=== PATIENT | female | born 1935 | race African-American/Black ===

== ENCOUNTER 2021-04-01 17:55 | Emergency (ER) | payer MEDICARE, SELFPAY ==
[2021-04-01] VITALS (11 sets, daily range): BP systolic 116–150; BP diastolic 69–82; PULSE 62–78; RESP 15–32; TEMP 36.6; O2SAT 79–97
--- NOTE | ~2021-04-01 | XR_ITS ---
XR chest ET placement 04/01/2021 19:48 Indication: Endotracheal tube placement Procedure: AP portable chest Comparison: 04/01/2021 Findings: Cardiomegaly. Unchanged patchy diffuse bilateral airspace disease. Interval placement of en dotracheal tube, tip in the right mainstem bronchus. Recommend retraction approximately 6 cm. Impression: 1: Endotracheal tube tip in the right mainstem bronchus. Recommend retraction approximately 6 cm. Oth erwise, no significant change. Reviewed, dictated and finalized at location A. Impression: 1: Endotracheal tube tip in the right mainstem bronchus. Recommend retraction a pproximately 6 cm. Otherwise, no significant change.
--- NOTE | ~2021-04-01 | XR_ITS ---
XR chest ET placement 04/01/2021 20:00 Indication: Endotracheal tube repositioned Procedure: AP portable chest Comparison: 04/01/2021 Findings: Interval retraction of the endotracheal tube, tip 3.2 cm above the elmer. Unchanged patchy bilateral airspace disease. No significant effusion or pneumothorax. Impression: 1: Persistent patchy diffuse bilateral airspace disease, compatible with pneumonia. Edema and ARDS le ss favored. 2: Endotracheal tube tip 3.2 cm above the elmer. Reviewed, dictated and finalized at location A. Impression: 1: Persistent patchy diffuse bilateral airspace disease, compatible with pneumo yamila. Edema and ARDS less favored. 2: Endotracheal tube tip 3.2 cm above the elmer.
--- NOTE | ~2021-04-01 | XR_ITS ---
XR chest 1V portable 04/01/2021 18:37 Indication: Shortness of breath with weakness Procedure: AP portable chest Comparison: No prior studies for comparison. Findings: Extensive patchy bilateral airspace disease, compatible with pneumonia. Small pleural effus ions. No pneumothorax. No acute osseous abnormality. Impression: 1: Extensive patchy bilateral airspace disease, most likely pneumonia. Edema less favored. 2: Cardiomegaly. 3: Small pleural effusions. Reviewed, dictated and finalized at location A. Impression: 1: Extensive patchy bilateral airspace disease, most likely pneumonia. Edema le ss favored. 2: Cardiomegaly. 3: Small pleural effusions.
--- NOTE | ~2021-04-01 | CT_ITS ---
EXAMINATION: CT brain wo con DATE: 04/01/2021 18:17 INDICATION: Stroke. Patient unresponsive. TECHNIQUE: Computed tomography (CT) of the head was performed without intravenous contrast. The dose- length product was 681.00 mGy-cm. Automated exposure control and iterative reconstruction technique w ere employed. COMPARISON: None FINDINGS: No acute intracranial hemorrhage, infarction, mass or mass effect. Generalized atrophy. The re are scattered mild periventricular and subcortical white matter changes, most likely related to sm all vessel ischemic disease (microangiopathy). No ventriculomegaly or midline shift. Basilar cisterns are patent. Paranasal sinuses and mastoids are pneumatized. 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 There is craniotomy defect at th e left temporal bone. IMPRESSION: 1. No acute intracranial abnormality. As per stroke protocol, I called these results to emergency room, discussed with Dr. Jacob wren MD at 04/01/2021 18:27 CDT. Reviewed, dictated and finalized at location A. IMPRESSION: 1. No acute intracranial abnormality. As per stroke protocol, I called these results to emergency room, discussed wit h Dr. Jacob Hanson MD at 04/01/2021 18:27 CDT.
--- NOTE | 2021-04-01 18:07 | ECG_ITS ---
Measurements Intervals [place] Rate: 72 P: 38 MI: 129 QRS: 46 QRSD: 86 T: -8 QT: 417 QTc: 457 Interpretive Statements SINUS RHYTHM BORDERLINE ST-T WAVE ABNORMALITY- LATERAL LEADS BASELINE ARTIFACT- I, II, III, AVR, AVL, AVF, V1-V6 BORDERLINE ECG Electronically Signed On 04-02-2021 7:47:25 CDT by Ha Christiansen D.O.
[2021-04-01 18:13] LABS: Basophils Absolute Auto 0.01 K/mm3 (0.00-0.10); Basophils Percent Auto 0.1 % (0.0-1.0); Hematocrit 29.3 % (35.0-42.0); Hemoglobin 9.4 g/dL (11.7-13.8); Immature Granulocyte Absolute 0.12 K/mm3 (0.00-0.00); Lymphocytes Absolute Auto 0.46 K/mm3 (1.10-4.50); Lymphocytes Percent Auto 3.9 % (18.0-42.0); Mean Corpuscular HGB Conc 32.1 g/dL (32.0-36.0); Mean Corpuscular Hemoglobin 29.5 pg (27.0-31.0); Mean Corpuscular Volume 91.8 fL (78.0-102.0); Mean Platelet Volume 10.3 fl (9.2-11.8); Monocytes Absolute Auto 0.76 K/mm3 (0.10-0.90); Monocytes Percent Auto 6.4 % (2.0-11.0); Neutrophils Absolute Auto 10.5 K/mm3 (1.7-7.2); Neutrophils Percent Auto 88.6 % (50.0-70.0); Platelet Count Result 200 K/mm3 (150-420); Red Blood Count 3.19 M/mm3 (4.20-5.40); Red Cell Distribution Width 15.3 % (11.6-14.4); White Blood Count 11.9 K/mm3 (4.8-10.8)
[2021-04-01 18:21] LABS: INR 1.1; Partial Thromboplastin Time 38.4 SEC (23.90-30.70); Prothrombin Time 11.8 Seconds (9.50-12.10)
--- NOTE | 2021-04-01 18:33 | PC.NURSE ---
Call paged to [facility] and [facility] in [place], denied due to no bed capapcity.
[2021-04-01 18:34] LABS: Ethanol < 3 mg/dL (0-6)
[2021-04-01 18:38] LABS: Lactic Acid Reflex 6.5 mmol/L (0.4-2.0)
[2021-04-01 18:39] LABS: Alanine Aminotransferase 49 U/L (14-59); Albumin Level 3.3 g/dL (3.4-5.0); Alkaline Phosphatase 112 U/L (46-116); Anion Gap 19 mmol/L (8-16); Aspartate Amino Transferase 62 U/L (15-37); Bilirubin,Total 0.8 mg/dL (0.00-1.00); Blood Urea Nitrogen 63 mg/dL (7-18); Calcium 8.2 mg/dL (8.5-10.1); Carbon Dioxide 16 mmol/L (21-32); Chloride 104 mmol/L (98-108); Estimated Glomerular Filt Rate 16; Glucose 222 mg/dL (70-99); Osmolality Calculated 313 mOsm/kg (285-295); Potassium 5.2 mmol/L (3.5-5.1); Sodium 139 mmol/L (136-145); Total Protein 6.7 g/dL (6.4-8.2)
[2021-04-01 18:40] LABS: Troponin I 149.6 ng/L (0.00-60.4)
--- NOTE | 2021-04-01 18:47 | PC.NURSE ---
Call placed to [facility] for transfer to [facility] ERP on phone at this time c Dr Flores.
[2021-04-01 18:55] LABS: Base Excess ABG -12.5 mmol/L (0-2); HCO3 ABG 14.6 mmol/L (23-29); Oxygen Content ABG 10.8 %vol (16.0-22.0); Oxygen Saturation ABG 75.1 % (95-97); Oxyhemoglobin 74.6 % (94-100); PCO2 ABG 38.2 mmHg (35-45); PO2 ABG 51.8 mmHg (75-85); Total Hemoglobin 10.3 g/dL (12.0-18.0)
[2021-04-01 18:57] LABS: Device NON-REBREATHER MASK; Modified Allen's Test Pass; Site Drawn LEFT RADIAL
[2021-04-01 18:59] LABS: Add Urine Microscopic? YES; Appearance Urine Clear (Clear); Bilirubin Urine Negative (Negative); Blood Urine 2+ (Negative); Color Urine Yellow (Yellow); Glucose Urine UA Negative (Negative); Ketones Urine Negative (Negative); Leukocyte Esterase Ur Negative (Negative); Nitrate Urine Negative (Negative); Protein Urine 3+ (Negative); Specific Grav Ur >= 1.030 (1.010-1.020); Urobilinogen Urine 0.2 mg/dL (0.2-1.0); pH Urine 5.5 (5.0-8.0)
[2021-04-01 19:04] LABS: Bacteria Urine Trace /hpf; Squamous Epithelial Cell Urine Few /hpf (Few); WBC Urine 0-3 /hpf (0-3)
[2021-04-01 19:05] LABS: Amphetamine Screen Urine Negative (Negative); Barbiturate Screen Urine Negative (Negative); Benzodiazepines Screen Urine Negative (Negative); Cannabinoid Screen Urine Negative (Negative); Cocaine Screen Urine Negative (Negative); Methadone Screen Urine Negative (Negative); Opiate Screen Urine Negative (Negative); Phencyclidine Screen Urine Negative (Negative)
--- NOTE | 2021-04-01 19:20 | PC.NURSE ---
Pt prepped for intubation, team here orders recieved.
[2021-04-01] MEDS: MIDAZOLAM HCL (*CRX) 5 MG/ML VIAL 10 MG (19:28)
--- NOTE | 2021-04-01 19:45 | PC.NURSE ---
Meds given per RSI for pt intubation....Versed 5 MG IV 2 1923 Vecuronium 6 mg IVP @ 192 Versed 5 mg IVP given @ 1928 ETT tube 7.5 inserted @1934 c good chest rise and good bilat BS noted.
--- NOTE | 2021-04-01 19:45 | PC.NURSE ---
ERP spoke to Dr Flores at [facility], he cancelled the stat stroke due to recent xray reports. Pt will be put on a transfer wait list to one of [facility]'s hospitals when a bed is found.
[2021-04-01] MEDS: SODIUM CHLORIDE 0.9% IV 1,000 ML 150 ML IV CONT (19:54)
[2021-04-01] MEDS: methylPREDNISolone SOD SUCC 125 MG VIAL IV PUSH (19:55)
[2021-04-01] MEDS: ALBUTEROL SULFATE NEB 2.5 MG/3 ML INH INHALATION (20:10)
[2021-04-01 20:18] LABS: SARS-CoV-2 RNA PCR Positive (Negative)
[2021-04-01] MEDS: SODIUM BICARBONATE 8.4% 50 MEQ/50 ML SYRINGE IV PUSH (20:23)
--- NOTE | 2021-04-01 20:44 | PC.NURSE ---
[facility] system called for pt transfer and for manager imaging. No beds available for transfer at this time. Call placed back to [facility] for possible bed available in an ICU, Stated no covid beds available for ICU transfer/admit.
--- NOTE | 2021-04-01 21:00 | PC.NURSE ---
Call [facility], spoke viji parisi. will call back c ICU warehouse administrative assistant.
[2021-04-01 21:21] LABS: Reflex Lactic Acid Yes or No Add Lactic
--- NOTE | 2021-04-01 21:37 | ED.NEUROSD ---
HPI - Neuro Symptoms/Deficit General Chief Complaint: Suspected CVA Stated Complaint: AMB Time Seen by Provider: 04/01/21 17:57 Source: family, EMS and RN notes reviewed Mode of arrival: EMS Limitations: no limitations History of Present Illness HPI Narrative: Pt collapsed at home and was unresponsive x 15 mins. Onset (ago): minute(s) (40) Timing confirmed by: family member and other (EMS) History of same: No Severity: severe Relieving factors: none Exacerbating factors: none Context: sudden onset Associated symptoms: shortness of breath Treatments Prior to Arrival: none Related Data Home Medications Medication Instructions Recorded Confirmed Unable to Obtain Home Medications 04/01/21 04/01/21 Allergies Allergy/AdvReac Type Severity Reaction Status Date / Time No Known Allergies Allergy Verified 04/01/21 20:37 Review of Systems Review of Systems: All systems reviewed & are unremarkable except as noted in HPI and below Respiratory: Respiratory: Reports dyspnea and Reports wheezing PMFSH Past Medical History Medical History COVID-19 Non-STEMI (non-ST elevated myocardial infarction) Pneumonia due to 2019 novel coronavirus Exam Const: General: ill appearing and other (pt was not communicative, but was non-focal) Nutritional Appearance: thin HENMT: Head: normal to inspection, No palpable skull fracture present, normocephalic and atraumatic Ears: TM's normal bilaterally General nose exam: Normal external nose present and Normal nares present Face and sinus: normal facial exam Mouth: Yes Normal oral and palatal mucosa present, Yes lip normal, Yes tongue normal, Yes moist mucous membranes and Yes other (edentulous) Throat: posterior oropharynx normal Eyes: Eyelids: eyelids normal Conjunctivae: conjunctivae normal Sclera: sclerae normal Cornea: corneas normal Pupils: Equal, round and reactive pupils present EOM: EOMs intact bilaterally Neck: Neck: normal visual inspection and no lymphadenopathy Chest: Chest palpation & inspection: normal inspection of the chest Resp: Effort & Inspection: labored, respiratory distress and uses accessory muscles Auscultation: rhonchi and wheezes Percussion: percussion normal Cardio: Jugular venous distension: no JVD Palpation: normal PMI Rate: regular rate Rhythm: regular rhythm Heart sounds: S1 normal heart sound present and S2 normal heart sound present Peripheral pulses: Peripheral pulses 2+ throughout GI: Inspection: normal to inspection Percussion: Yes normal to percussion Auscultation: normal bowel sounds : General: Yes no CVA tenderness Back/Spine/Pelvis: Back: no CVA tenderness Thoracic/Lumbar Spine: thoracic and lumbar spine normal to inspection Skin: General skin exam: normal color, no rashes or lesions noted and turgor normal Neuro: General: moves all extremities and other (pt was non-communicative but responsive with no lateralizing signs.) Cranial nerves: Yes CN's II-XII intact bilaterally, Yes Equal, round and reactive pupils present, Yes Normal accommodation reflex present and Yes Bilaterally intact EOM present Speech: aphasia Motor exam (neuro): Other motor observations present (strength 2/5) Extrem: General: capillary refill normal, no joint enlargement, no pedal edema and no calf tenderness Psych: Appearance: disheveled Thought process: Other thought process findings present (non-communicative.) Thought content: Yes other (non-communicative pt.) Course Course Emergency Course: Pt was seriously ill in the ED, she was stabilized and intubated prior to transfer to [facility] ICU. Reevaluation(s) Date: 04/01/21 Time: 18:56 Vital Signs Vital signs: Vital Signs Pulse Rate 72 04/01/21 18:00 Respiratory Rate 16 04/01/21 18:00 Blood Pressure 116/82 04/01/21 18:00 Pulse Oximetry 80 L 04/01/21 18:00 Temperature 36.6 C 04/01/21 20:33 Pulse Rate 62
--- NOTE | 2021-04-01 21:50 | PC.NURSE ---
Call back from traveling clerk at [facility] Dr Boucher accepts for transfer. Call back from hospitalist at [facility] who accepts for transfer. Awaiting call back c bed assignment.
[2021-04-01] MEDS: DEXAMETHASONE SOD PHOS INJ 4 MG/ML VIAL 6 MG IV PUSH (22:01)
[2021-04-01 22:16] LABS: Base Excess ABG -8.2 mmol/L (0-2); HCO3 ABG 17.5 mmol/L (23-29); Oxygen Content ABG 12.1 %vol (16.0-22.0); Oxygen Saturation ABG 84.6 % (95-97); Oxyhemoglobin 84.2 % (94-100); PCO2 ABG 36.7 mmHg (35-45); PO2 ABG 57.4 mmHg (75-85); Total Hemoglobin 10.2 g/dL (12.0-18.0)
[2021-04-01 22:17] LABS: Device VENTILATOR; Modified Allen's Test Pass; Site Drawn RIGHT RADIAL
[2021-04-01 22:18] LABS: Arterial Blood Gas Vent Mode ASSIST CONTROL
[2021-04-01 22:19] LABS: Arterial Blood Gas PEEP 8 cmH2O; Arterial Blood Gas Tidal Volume 300 ml; Arterial Blood Gas Ventilator rate 15 /MIN
[2021-04-01] MEDS: ALBUTEROL SULFATE NEB 2.5 MG/3 ML INH (22:21)
[2021-04-01] MEDS: MIDAZOLAM HCL (*CRX) 2 MG/2 ML VIAL IV PUSH (22:31)
--- NOTE | 2021-04-29 07:46 | PC.NURSE ---
unable to contact pt family. personal belongings of pants, shirt, tshirt disposed of today. noted pt has .
== END 2021-04-01 22:45 | disposition short-term general hospital (02) ==
PROVIDERS: Emergency Provider Emergency Medicine; PCP Physician Assistant
DX: U07.1 COVID-19 (principal); J12.82 Pneumonia due to coronavirus disease 2019; I21.4 Non-ST elevation (NSTEMI) myocardial infarction
CPT/HCPCS: 31500; 36415; 36600; 70450; 71045; 80053; 80307; 81001; 82805; 82948; 83605; 84484; 85025; 85610; 85730; 93005; 94640; 96361; 96365; 96367; 96375; 96376; 99285; 99291; C9803; J0456; J0696; J1100; J2250; J2930; J7030; U0003; U0005

== ENCOUNTER 2021-04-01 23:39 | Inpatient (IN) | payer MEDICARE, SELFPAY ==
--- NOTE | ~2021-04-01 | XR_ITS ---
EXAMINATION: XR chest 1V portable EXAM DATE: 04/03/2021 08:42 INDICATION: COVID pneumonia, acute respiratory failure. TECHNIQUE: Portable AP frontal chest x-ray was obtained. Comparison is made to prior examination from 04/02/2021. FINDINGS: Endotracheal tube tip is 5 centimeters above the elmer. There is a nasogastric tube seen with tip collimated off the study, but below the left hemidiaphragm. There is a right-sided PICC line in position. Diffuse right greater than left airspace disease consistent with COVID pneumonia. There are no sizab le pleural effusions. Lung interstitial markings identified to the periphery, no pneumothorax suspe cted. The cardiomediastinal silhouette is prominent but magnified on this AP technique. The bones and soft tissues are unremarkable. There is no significant interval change compared to prior exam. IMPRESSION: 1. Line and tube(s) in position. 2. Stable airspace disease and other findings as above. Reviewed, dictated and finalized at location A.
--- NOTE | ~2021-04-01 | XR_ITS ---
EXAMINATION: XR chest ET placement EXAM DATE: 04/02/2021 00:48 INDICATION: After intubation to confirm ET placement TECHNIQUE: Portable AP frontal chest x-ray was obtained. There is no prior study for comparison. FINDINGS: Endotracheal tube tip is 4 centimeters above the elmer. There is a nasogastric tube seen with tip collimated off the study, but below the left hemidiaphragm. There is diffuse bilateral airspace disease likely acute, probably pneumonia or edema. Underlying chr onic airspace disease not excludable. There are no sizable pleural effusions. There is no pneumoth orax suspected. The cardiomediastinal silhouette is prominent but magnified on this AP technique. There are bony degenerative changes. There is aortic arteriosclerosis. IMPRESSION: 1. Tubes in position. 2. Diffuse acute airspace disease, pneumonia and/or edema most likely. Reviewed, dictated and finalized at location A.
--- NOTE | ~2021-04-01 | XR_ITS ---
XR chest PICC line 04/02/2021 14:55 Indication: PICC line insertion Procedure: AP portable chest Comparison: Comparison to multiple prior studies sequentially, with oldest reviewed study dated 03/05. Findings: Interval placement of right subclavian central line, tip in the CC. Endotracheal tube tip 4 .2 cm above the elmer. NG tube in the stomach. Unchanged diffuse bilateral airspace disease, compati ble with pneumonia. No pneumothorax identified. Impression: 1: Stable diffuse bilateral airspace disease, most likely pneumonia. Differential diagnosis includes edema and ARDS. Reviewed, dictated and finalized at location A. Impression: 1: Stable diffuse bilateral airspace disease, most likely pneumonia. Differenti al diagnosis includes edema and ARDS.
--- NOTE | ~2021-04-01 | XR_ITS ---
EXAMINATION: XR chest 1V portable DATE: 04/09/2021 08:36 INDICATION: Respiratory failure TECHNIQUE: frontal view of the chest was obtained. COMPARISON: Chest radiograph dated 04/07/2021 FINDINGS: Endotracheal tube tip 5.5 cm above the elmer. Nasogastric tube extends below the left hemidiaphragm with distal tip collimated off the study. Right upper extremity peripherally inserted central venous catheter (PICC) tip at the mid superior vena cava. Decreasing patchy consolidation throughout both lungs consistent with worsening pneumonia. Small bila teral pleural effusions. No pneumothorax. Enlarged cardiac silhouette is partially obscured. IMPRESSION: 1. Interval increase in extensive patchy bilateral airspace opacities consistent with worsening pneum onia, pulmonary edema, ARDS or some combination thereof. 2. Small bilateral pleural effusions 3. Cardiomegaly.. Reviewed, dictated and finalized at location A. IMPRESSION: 1. Interval increase in extensive patchy bilateral airspace opacities consisten t with worsening pneumonia, pulmonary edema, ARDS or some combination thereof. 2. Small bilateral pleural effusions 3. Cardiomegaly..
--- NOTE | ~2021-04-01 | XR_ITS ---
EXAMINATION: XR abdomen NG/feed tube insert EXAM DATE: 04/02/2021 00:48 INDICATION: NG placement . TECHNIQUE: Frontal projection(s) of the abdomen for interpretation. There is no prior study for abena tee. FINDINGS: Feeding tube tip and side-port project over left upper quadrant, adequate. Nonobstructive upper abdominal bowel gas. Diffuse bilateral airspace disease, cardiomegaly. Thoracolumbar spondylosi s. IMPRESSION: Feeding tube in position. Reviewed, dictated and finalized at location A. IMPRESSION: Feeding tube in position.
--- NOTE | ~2021-04-01 | XR_ITS ---
EXAMINATION: XR chest 1V portable INDICATION: COVID pneumonia, respiratory failure TECHNIQUE: Portable AP chest at 0901 hours COMPARISON: 04/06/2021 FINDINGS: The endotracheal tube ends approximately 5.7 cm above the elmer. The nasogastric tube is f ollowed as far as the stomach. Its tip is beyond the inferior margin of the radiograph. A right upper extremity PICC ends with its tip in the distal superior vena cava. Diffuse opacities persist through out all lung zones with interval improvement in the right upper lung zone and worsening in the left m id and upper lung zones. IMPRESSION: 1. Waxing and waning diffuse lung disease, consistent with pneumonia and/or pulmonary edema and/or ac chenega respiratory distress syndrome (ARDS). Reviewed, dictated and finalized at location B. IMPRESSION: 1. Waxing and waning diffuse lung disease, consistent with pneumonia and/or pul monary edema and/or acute respiratory distress syndrome (ARDS).
--- NOTE | ~2021-04-01 | XR_ITS ---
EXAMINATION: XR chest 1V portable DATE: 04/04/2021 06:03 INDICATION: COVID pneumonia. Acute respiratory failure. TECHNIQUE: frontal view of the chest was obtained. COMPARISON: Chest radiograph dated 04/03/2021 FINDINGS: Endotracheal tube tip 4.3 cm above the elmer. Nasogastric tube extends below the left hemidiaphragm with distal tip collimated off the study. Right upper extremity peripherally inserted central venous catheter (PICC) tip at the caudal superior vena cava. There is been some interval progression in patchy airspace opacities throughout both lungs. No pneumo thorax or definitive pleural effusion. Cardiomegaly. IMPRESSION: 1. Some interval progression in patchy airspace opacities throughout both lungs consistent with pneum onia versus less likely pulmonary edema. 2. Cardiomegaly. Reviewed, dictated and finalized at location A. IMPRESSION: 1. Some interval progression in patchy airspace opacities throughout both lungs consistent with pneumonia versus less likely pulmonary edema. 2. Cardiomegaly.
--- NOTE | ~2021-04-01 | US_ITS ---
EXAMINATION: US renal BI EXAM DATE: 04/02/2021 13:09 INDICATION: Acute kidney injury rule out hydronephrosis. Acute kidney insufficiency. TECHNIQUE: Multiple grayscale and Doppler images of the kidneys were obtained (by a technologist who performed the scan) and subsequently reviewed. There is no prior study for comparison. FINDINGS: There is bilateral renal cortical thinning. Right kidney: There is normal contour and increased echogenicity. It measures 10.8 x 3.2 x 3.5 centi meters. Right renal anechoic lesion with single septation, likely cyst measuring up to 1.5 cm. Ther e is no hydronephrosis. Left kidney: There is normal contour and increased echogenicity. It measures 9.6 x 4.1 x 4.2 centime ters. Exophytic cyst measuring 1.5 cm There is no hydronephrosis. Bladder unremarkable. IMPRESSION: 1. Mild bilateral renal atrophy. 2. Echogenic kidneys, medical renal disease. 3. No hydronephrosis. Reviewed, dictated and finalized at location A.
--- NOTE | ~2021-04-01 | XR_ITS ---
EXAMINATION: XR chest 1V portable INDICATION: COVID pneumonia, acute respiratory failure TECHNIQUE: Portable AP chest at 0921 hours COMPARISON: 04/04/2021 FINDINGS: The endotracheal tube ends approximately 5.4 cm above the elmer. The nasogastric tube is f ollowed as far as the stomach. Its tip is beyond the inferior margin of the radiograph. A right upper extremity PICC ends with its tip in the distal superior vena cava. Patchy opacities persist througho ut all lung zones with slight interval improvement. The cardiomediastinal silhouette is stable. No pl eural effusion or pneumothorax is identified. IMPRESSION: 1. Diffuse lung disease with slight interval improvement, consistent with pneumonia and/or pulmonary edema and/or acute respiratory distress syndrome (ARDS). Reviewed, dictated and finalized at location B. IMPRESSION: 1. Diffuse lung disease with slight interval improvement, consistent with pneum onia and/or pulmonary edema and/or acute respiratory distress syndrome (ARDS).
--- NOTE | ~2021-04-01 | XR_ITS ---
EXAMINATION: XR chest 1V portable INDICATION: COVID pneumonia, acute respiratory failure TECHNIQUE: Portable AP chest at 0859 hours COMPARISON: 04/05/2021 FINDINGS: The endotracheal tube ends approximately 7.0 cm above the elmer. The nasogastric tube is f ollowed as far as the stomach. Its tip is beyond the inferior margin of the radiograph. A right upper extremity PICC ends with its tip in the midsuperior vena cava. Diffuse opacities persist throughout all lung zones with interval worsening. Cardiomegaly is noted. There is no pleural effusion or pneumo thorax. IMPRESSION: 1. Diffuse lung disease with interval worsening, consistent with pneumonia and/or pulmonary edema and /or acute respiratory distress syndrome (ARDS). Reviewed, dictated and finalized at location B. IMPRESSION: 1. Diffuse lung disease with interval worsening, consistent with pneumonia and/ or pulmonary edema and/or acute respiratory distress syndrome (ARDS).
--- NOTE | 2021-04-01 23:20 | ADMGEN ---
This patient, Alisa Dleeon, was admitted to Intensive Care Unit-10. Patient/family oriented to hospital policies and general routines including ID bracelet, bed and alarms, visiting hours, pain management, procedures, bathroom and other care routines, personal items, smoking policy, room service/diet, and visiting hours. Information on how to activate the Rapid Response Team has been discussed. Patient/Family are encouraged to report perceived risks to care and to ask questions if they do not understand what they are told or what they should do.
[2021-04-01 23:30] VITALS: PULSE 71; O2SAT 94
[2021-04-01 23:36] VITALS: BP 148/78; PULSE 70; RESP 28; O2SAT 93
[2021-04-01 23:51] VITALS: BMI 21.2
--- NOTE | 2021-04-01 23:59 | PM.IMHP ---
H&P: HPI History of Present Illness Date/Time: 04/01/21 23:59 Chief Complaint: Shortness of breath Narrative: This is an 85-year-old female with past medical history significant for hypertension, anemia of iron deficiency, dyslipidemia. Patient came as a transfer from [facility] where she arrived by ambulance once there patient crashed with severe respiratory distress and required ventilator support. Most of the history has been obtained from medical record as patient is currently on ventilator support. Patient tested positive for COVID-19 and chest x-ray showed diffuse lung infiltrates. Review of Systems Review of Systems: ROS unobtainable: Yes unobtainable due to medical condition (On ventilator support) [facility] Family History Family History (Updated 04/02/21 @ 02:31 by Nikki Benjamin RN) Other Unknown family medical history Social History Social History Smoking status: Never smoker Alcohol intake: never Substance use: never Spiritual care concerns: No Meds Home Medications and Allergies Home Medications Medication Instructions Recorded Confirmed Type amlodipine 10 mg PO DAILY 04/02/21 04/02/21 History atorvastatin 40 mg PO DAILY 04/02/21 04/02/21 History escitalopram oxalate 20 mg PO DAILY 04/02/21 04/02/21 History ferrous sulfate 325 mg PO DAILY 04/02/21 04/02/21 History furosemide 20 mg PO DAILY 04/02/21 04/02/21 History metoprolol tartrate 25 mg PO BID 04/02/21 04/02/21 History pantoprazole 20 mg PO DAILY 04/02/21 04/02/21 History potassium chloride 20 meq PO DAILY 04/02/21 04/02/21 History Allergies Allergy/AdvReac Type Severity Reaction Status Date / Time No Known Allergies Allergy Verified 04/02/21 01:38 Vital Signs Vital Signs - 24 hr 04/01/21 23:36 Pulse Rate 70 Respiratory Rate 28 H Blood Pressure 148/78 H Pulse Oximetry 93 Exam Narrative: Laying in bed on ventilator support Const: General: comfortable, no acute distress, well developed and other (On ventilator support) Nutritional Appearance: average body habitus Orientation/consciousness: Other orientation findings (Sedated) HENMT: Head: normal to inspection, normocephalic and atraumatic Face and sinus: normal facial exam Mouth: Yes other (ET tube in place) Eyes: General: appearance normal, both eyes and all related structures Alignment and Position: alignment normal Eyelids: eyelids normal Sclera: sclerae normal Pupils: Equal, round and reactive pupils present EOM: EOMs intact bilaterally Neck: Neck: normal visual inspection, full ROM, no lymphadenopathy, supple and no JVD Thyroid: thyroid normal Lymphatic: no lymphadenopathy noted Chest: Chest palpation & inspection: normal inspection of the chest Resp: Effort & Inspection: normal respiratory effort (In sync with ventilator) Auscultation: crackles, rales and diminished lung sounds Cardio: Jugular venous distension: no JVD Rate: regular rate Rhythm: regular rhythm Heart sounds: S1 normal heart sound present and S2 normal heart sound present GI: Inspection: normal to inspection GI Palp: Yes Soft to palpation, No Tenderness to palpation present (GI), No Guarding due to palpation present (GI) and Yes No hepatosplenomegaly present : General: Yes deferred Urinary Catheter: Urinary Catheter: patent and draining Skin: General skin exam: normal color Rashes: no rashes Wounds: no wounds Neuro: General: no focal motor deficits Cognition (Neuro): abnormal cognition (Under sedation) Gait exam (Neuro): Unable to assess gait Extrem: General: normal to inspection, full ROM, no joint enlargement and no pedal edema Assessment and Plan Assessment and plan (1) Acute respiratory failure: Code(s): J96.00 - Acute respiratory failure, unspecified whether with hypoxia or hypercapnia Status: Acute Assessment and Plan: Patient is currently on ventilator support Vent management as per Critical Care Pulmonary toilet Supportiv
[2021-04-02] VITALS (47 sets, daily range): BP systolic 84–180; BP diastolic 51–88; PULSE 59–91; RESP 14–30; TEMP 34.7–37.8; O2SAT 84–100
[2021-04-02 00:45] LABS: Glucose Point of Care 276 mg/dl (65-105)
[2021-04-02 00:46] LABS: Basophils Percent Auto 0.1 % (0.2-1.2); Hemoglobin 9.9 g/dL (12.0-15.0); Immature Granulocyte Absolute 0.06 K/mm3 (0.00-0.031); Immature Granulocyte Percent A 0.6 % (0-0.5); Lymphocytes Absolute Auto 0.36 K/mm3 (0.9-3.2); Lymphocytes Percent Auto 3.6 % (18.3-44.2); Mean Corpuscular Hemoglobin 29.6 pg (26-34); Mean Corpuscular Volume 89.8 fl (80-100); Mean Platelet Volume 10.6 fl (7.4-10.4); Monocytes Absolute Auto 0.3 K/mm3 (0.1-0.6); Monocytes Percent Auto 2.9 % (2.6-8.5); Neutrophils Absolute Auto 9.4 K/mm3 (1.3-6.7); Neutrophils Percent Auto 92.8 % (45.5-73.1); Platelet Count Result 175 k/mm3 (150-375); Red Blood Count 3.34 M/mm3 (4.2-5.4); Red Cell Distribution Width 15.4 % (11.5-14.5); White Blood Count 10.1 K/mm3 (4.5-10.0)
[2021-04-02 00:54] LABS: Alanine Aminotransferase 45 U/L (4-35); Aspartate Amino Transferase 82 U/L (14-36); Creatine Kinase 831 U/L (30-135); Estimated CRCL calculation 13 ml/min; Estimated Glomerular Filt Rate 23; Phosphorus 5.7 mg/dL (2.5-4.5); Potassium 4.8 mmol/L (3.4-5.0)
[2021-04-02 00:55] LABS: Lactic Acid Reflex 1.7 mmol/L (0.7-2.1)
[2021-04-02 01:03] LABS: Carboxyhemoglobin 0.3 % THb (0-2.0); Fractional Inspired Oxygen 90 %; HCO3 ABG 17.6 mEq/l (22.0-26.0); Methemoglobin ABG 0.1 %THb (0-1.5); Oxygen Content ABG 12.9 %vol (16.0-22.0); Oxyhemoglobin 85.4 % THb (90.0-100.0); PCO2 ABG 32.4 mmHg (35.0-45.0); PO2 ABG 55.5 mmHg (80.0-100.0); PO2 FiO2 Ratio Arterial Blood 0.62 %; Reduced Hemoglobin 14.2 %THb (0-5.0); Total Hemoglobin 10.7 g/dL (12.0-18.0); pH ABG 7.354 (7.350-7.450)
[2021-04-02 01:04] LABS: Device VENTILATOR; Modified Allen's Test Pass; Site Drawn RIGHT RADIAL
[2021-04-02 01:05] LABS: Arterial Blood Gas PEEP 8 cmH2O; Arterial Blood Gas Tidal Volume 300 ml; Arterial Blood Gas Vent Mode CMV; Arterial Blood Gas Ventilator rate 15 /MIN
[2021-04-02] MEDS: FENTANYL 2,500MCG/NS250ML(*CRX 2,500 MCG/250 ML BAG IV CONT (01:38)
[2021-04-02] MEDS: MIDAZOLAM 100MG/NS 100ML(*CRX) 100 MG/100 ML BAG IV CONT (01:39)
--- NOTE | 2021-04-02 01:50 | ADMIMU ---
This patient, Alisa Deleon, was admitted to IMU status, and placed in Intensive Care Unit-10 04/01/21 at 2320. Patient/family oriented to hospital policies and general routines including ID bracelet, bed and alarms, visiting hours, pain management, procedures, bathroom and other care routines, personal items, smoking policy, room service/diet, and visiting hours. Information on how to activate the Rapid Response Team has been discussed. Patient/Family are encouraged to report perceived risks to care and to ask questions if they do not understand what they are told or what they should do.
--- NOTE | 2021-04-02 01:51 | PC.NURSE ---
spoke with son and updated per condition. He states his mother was fine until she got this cold . Explained he and his father have been exposed to covid so they need to take precautions and get tested. Son agrees to central line or PICC if needed stating whatever you need to do . Ayde Hampton RN second verifying nurse for telephone consent. Son does not have POA paper for mother but was in the process of setting them up. He is the primary bistro server for his mother and father, as well as his father's POA, and his father wants him to make medical decisions. Patient was not vaccinated for covid and she routinely refuses the flu vaccine so the son does not want her to get one this admission.
[2021-04-02] MEDS: SUCRALFATE SUSP 100 MG/ML 10 ML UDC 1000 MG FEED TUBE ×5 (02:59→23:10)
[2021-04-02 03:09] LABS: Creatine Kinase 762 U/L (30-135); Magnesium 2.1 mg/dL (1.6-2.3)
[2021-04-02] MEDS: BARICITINIB 1 MG TABLET PO (06:24)
[2021-04-02 06:35] LABS: Glucose Point of Care 269 mg/dl (65-105)
[2021-04-02] MEDS: MINERAL OIL/WHITE PETROLATUM OINTMENT 1 APPLIC EACH EYE ×2 (08:48→20:19)
[2021-04-02] MEDS: PANTOPRAZOLE SODIUM IV 40 MG VIAL IV PUSH (08:48)
[2021-04-02 10:30] LABS: Alveolar/Arterial O2 Gradient 621.2 mmHg; Base Excess ABG -6.8 mEq/l (+/-2.0); Device VENTILATOR; Fractional Inspired Oxygen 100 %; HCO3 ABG 17.4 mEq/l (22.0-26.0); Oxygen Content ABG 13.3 %vol (16.0-22.0); Oxygen Saturation ABG 91.5 % (95.0-100.0); Oxyhemoglobin 87.5 % THb (90.0-100.0); PCO2 ABG 30.3 mmHg (35.0-45.0); PO2 ABG 61.5 mmHg (80.0-100.0); PO2 FiO2 Ratio Arterial Blood 0.62 %; Site Drawn LEFT BRACHIAL; Total Hemoglobin 10.8 g/dL (12.0-18.0); pH ABG 7.376 (7.350-7.450)
[2021-04-02 10:31] LABS: Arterial Blood Gas Vent Mode CMV; Arterial Blood Gas Ventilator rate 14 /MIN
[2021-04-02 10:32] LABS: Arterial Blood Gas PEEP 10 cmH2O; Arterial Blood Gas Pressure Support 0 cmH2O; Arterial Blood Gas Tidal Volume 290 ml
--- NOTE | 2021-04-02 11:58 | WPDCNINT ---
Assessment and Plan Assessment and plan (1) Acute respiratory failure: Code(s): J96.00 - Acute respiratory failure, unspecified whether with hypoxia or hypercapnia Status: Acute Assessment and Plan: Acute hypoxic respiratory failure likely related to COVID pneumonia -chest x-ray and ABGs reviewed, ventilator adjusted -continue on CMV mode of ventilation, peep of 10, 100% FiO2, -will prone patient for 16-18 hours starting today -sedated with fentanyl and Versed infusion (2) Pneumonia due to severe acute respiratory syndrome coronavirus 2 (SARS-CoV-2): Code(s): U07.1 - COVID-19; J12.82 - Pneumonia due to coronavirus disease 2018 Status: Acute Assessment and Plan: SARS-CoV-2 PCR positive at the outside hospital in [facility] -inflammatory markers have been ordered -started patient on dexamethasone -continue Baricitinib -patient is not a candidate for remdesivir given decreased creatinine clearance (3) ALIX (acute kidney injury): Code(s): N17.9 - Acute kidney failure, unspecified Status: Acute Assessment and Plan: Patient with elevated creatinine on admission at the outside hospital unknown if patient has any chronic component -will give gentle IV fluids and evaluate -continue monitor urine output, renal function electrolytes -will obtain renal ultrasound -check CK levels (4) DVT prophylaxis: Code(s): Z29.9 - Encounter for prophylactic measures, unspecified Status: Acute Assessment and Plan: DVT prophylaxis: Will add heparin SQ Stress ulcer prophylaxis: Protonix Additional Plan Will update family Code status: Full code Critical care time spent: 48 minutes This dictation may have been done utilizing a voice recognition system. Attempts have been made to correct errors. However, there may be uncorrected grammatical, spelling, and recognition errors present. Due to a high probability of clinically significant, life threatening deterioration, the patient required my highest level of preparedness to intervene emergently and I personally spent this critical care time directly and personally managing the patient. This critical care time included obtaining a history; examining the patient; pulse oximetry; ordering and review of studies; arranging urgent treatment with development of a management plan; evaluation of patient's response to treatment; frequent reassessment; and discussions with other providers. It was exclusive of separately billable procedures and treating other patients and teaching time. Please see Assessment and Plan section and the rest of the note for further information on patient assessment and treatment [employer] Webmaster Consult Note Consult date: 04/02/21 Time Seen: 06:54 Reason for consult: Acute hypoxic respiratory failure, COVID pneumonia, acute kidney injury, hyperglycemia HPI: Alisa Deleon is a 85 year old female with past medical history of essential hypertension, anemia, hyperlipidemia, depression, anxiety, GERD presented to the [facility] hospitalist wanted will he complains of altered mental status and collapsed at home for 15 minutes associated with shortness of breath, was thought to have a stroke the CT head was negative, at that time patient was nonfocal, pupils were equal and reactive. Patient was found to have diffuse bilateral crackles, chest x-ray showed large right-sided pneumonia and small left-sided diffuse pneumonia. COVID PCR was positive. Patient was intubated, placed on mechanical ventilation 100% FiO2, creatinine was elevated so was the lactic and troponin. It is sedated on fentanyl and Versed infusion and was transferred to the ICU at [facility] for further management. She was also started on Zosyn and vancomycin. Patient seen and examined this morning, remains intubated, sedated, does not open her eyes or follow commands, withdraws to pain in all extremities. Patient currently is on 100% FiO2. Was started
[2021-04-02 12:06] LABS: Glucose Point of Care 232 mg/dl (65-105)
[2021-04-02] MEDS: SODIUM CHLORIDE 0.9% IV 500 ML IV CONT (12:25)
[2021-04-02] MEDS: LIDOCAINE HCL 1% PF INJ 5 ML VIAL INFILTRATE (14:51)
[2021-04-02] MEDS: HEPARIN SODIUM 5,000 UNITS/ML VIAL 5000 UNITS SUB-Q ×2 (15:19→21:56)
[2021-04-02 15:29] LABS: Basophils Percent Auto 0.1 % (0.2-1.2); Hematocrit 29.1 % (37.0-47.0); Hemoglobin 9.4 g/dL (12.0-15.0); Immature Granulocyte Absolute 0.09 K/mm3 (0.00-0.031); Immature Granulocyte Percent A 0.8 % (0-0.5); Lymphocytes Absolute Auto 0.49 K/mm3 (0.9-3.2); Lymphocytes Percent Auto 4.2 % (18.3-44.2); Mean Corpuscular HGB Conc 32.3 g/dl (32-36); Mean Corpuscular Hemoglobin 29.8 pg (26-34); Mean Corpuscular Volume 92.4 fl (80-100); Monocytes Absolute Auto 0.2 K/mm3 (0.1-0.6); Neutrophils Absolute Auto 10.9 K/mm3 (1.3-6.7); Neutrophils Percent Auto 92.9 % (45.5-73.1); Platelet Count Result 170 k/mm3 (150-375); Red Blood Count 3.15 M/mm3 (4.2-5.4); Red Cell Distribution Width 15.8 % (11.5-14.5); White Blood Count 11.7 K/mm3 (4.5-10.0)
[2021-04-02 15:39] LABS: INR 1.1; Prothrombin Time 14.1 Seconds (11.1-14.7)
[2021-04-02 15:40] LABS: Partial Thromboplastin Time 55.6 SECONDS (22.3-36.8)
[2021-04-02 15:42] LABS: D Dimer 2.96 ug/mL (<0.48); Lactic Acid Reflex 1.5 mmol/L (0.7-2.1)
[2021-04-02 16:00] LABS: Alanine Aminotransferase 32 U/L (4-35); Albumin Level 3.1 g/dL (3.5-5.1); Alkaline Phosphatase 81 U/L (38-126); Anion Gap 8 mmol/L (8-16); Aspartate Amino Transferase 60 U/L (14-36); Bilirubin,Total 0.7 mg/dL (0.2-1.3); Blood Urea Nitrogen 63 mg/dL (7-17); CRP 8.1 mg/dL (<1.0); Calcium 7.8 mg/dL (8.4-10.2); Carbon Dioxide 21 mmol/L (22-30); Chloride 109 mmol/L (98-107); Creatine Kinase 711 U/L (30-135); Estimated CRCL calculation 15 ml/min; Estimated Glomerular Filt Rate 27; Glucose 204 mg/dL (65-110); Lactate Dehydrogenase 1136 U/L (313-618); Magnesium 2.1 mg/dL (1.6-2.3); Phosphorus 4.9 mg/dL (2.5-4.5); Potassium 4.8 mmol/L (3.4-5.0); Sodium 138 mmol/L (137-145)
[2021-04-02] MEDS: INSULIN ASPART (*BKC) 100 UNITS/ML SUB-Q (17:33)
[2021-04-02 17:43] LABS: Glucose Point of Care 207 mg/dl (65-105)
[2021-04-02 18:28] LABS: Ferritin > 2000.00 ng/mL (11.1-264)
[2021-04-02] MEDS: ROCURONIUM BROMIDE 50 MG/5 ML VIAL IV PUSH (18:56)
[2021-04-02] MEDS: CISATRACURIUM BESYLATE 200 MG in DEXTROSE 5% 80 ML IV CONT (19:43)
--- NOTE | 2021-04-02 19:47 | PM.IMPN ---
Progress Note: A&P Assessment and Plan (1) Rhabdomyolysis: Qualifiers: Rhabdomyolysis type: non-traumatic Qualified Code(s): M62.82 - Rhabdomyolysis Code(s): M62.82 - Rhabdomyolysis Status: Acute (2) DVT prophylaxis: Code(s): Z29.9 - Encounter for prophylactic measures, unspecified Status: Acute (3) Abnormal LFTs: Code(s): R94.5 - Abnormal results of liver function studies Status: Acute (4) ALIX (acute kidney injury): Code(s): N17.9 - Acute kidney failure, unspecified Status: Acute (5) Acute respiratory failure: Qualifiers: Respiratory failure complication: hypoxia Qualified Code(s): J96.01 - Acute respiratory failure with hypoxia Code(s): J96.00 - Acute respiratory failure, unspecified whether with hypoxia or hypercapnia Status: Acute (6) Pneumonia due to severe acute respiratory syndrome coronavirus 2 (SARS-CoV-2): Code(s): U07.1 - COVID-19; J12.82 - Pneumonia due to coronavirus disease 2019 Status: Acute (7) Leukocytosis: Qualifiers: Leukocytosis type: unspecified Qualified Code(s): D72.829 - Elevated white blood cell count, unspecified Code(s): D72.829 - Elevated white blood cell count, unspecified Status: Acute (8) Chronic anemia: Code(s): D64.9 - Anemia, unspecified Status: Acute (9) Elevated d-dimer: Code(s): R79.89 - Other specified abnormal findings of blood chemistry Status: Acute (10) Metabolic acidosis: Code(s): E87.2 - Acidosis Status: Acute (11) Hyperphosphatemia: Code(s): E83.39 - Other disorders of phosphorus metabolism Status: Acute Time Spent With Patient Time with patient: 15 - 25 minutes Subjective Date/time seen: 04/02/21 19:47 Interval history: 85-year-old female with past medical history significant for hypertension, hyperlipidemia, iron deficiency anemia presented to outside hospital with respiratory distress and was transferred to [facility]. She required intubation and continued ventilatory support. She is being managed as a case of COVID-19 pneumonia with concerns for diffuse lung infiltrates. She is currently in the ICU continuing to receive medications as appropriate Review of Systems Review of Systems: ROS unobtainable: Yes unobtainable due to endotracheal tube Exam Narrative: General: Patient is intubated, sedated on mechanical ventilation HEENT: Pupils equal and reactive, neck is supple, Lungs/Chest: Trachea central Coarse BS B/L, No crackles or wheezing, air entry is adequate Cardiac: Normal sinus rhythm, rate control, normal S1-S2 Circulation: Pedal pulses are intact and symmetrical. Abdomen: Soft. Non tender, non distended, hypoactive bowel sounds. Extremities: No clubbing, cyanosis, edema, pedal pulses are palpable : Love in place Neurologic: Patient intubated and sedated Objective Data Vital Signs Vital Signs: Vital Signs - 24 hr 04/01/21 23:30 04/01/21 23:36 04/02/21 00:00 Temperature Pulse Rate 71 70 72 Respiratory Rate 28 H Blood Pressure 148/78 H Pulse Oximetry 94 93 04/02/21 00:28 04/02/21 00:30 04/02/21 00:45 Temperature 94.4 F L 94.4 F L 94.9 F L Pulse Rate 75 Respiratory Rate 28 H Blood Pressure 162/83 H Pulse Oximetry 87 L 04/02/21 01:00 04/02/21 01:30 04/02/21 01:38 Temperature 94.9 F L 95.3 F L Pulse Rate 74 Respiratory Rate 30 H Blood Pressure Pulse Oximetry 04/02/21 01:39 04/02/21 02:00 04/02/21 02:20 Temperature 96.5 F L Pulse Rate 75 73 79 Respiratory Rate 30 H 27 H Blood Pressure 151/81 H Pulse Oximetry 91 92 04/02/21 02:53 04/02/21 04:00 04/02/21 04:38 Temperature 98 F 99.4 F Pulse Rate 81 83 Respiratory Rate 23 H 23 H Blood Pressure 166/81 H Pulse Oximetry 91 04/02/21 05:30 04/02/21 06:00 04/02/21 06:28 Temperature 99.9 F H 100.1 F H Pulse Rate 85 82 91 Respiratory Rate 2
[2021-04-02 21:24] LABS: Troponin I 0.146 ng/mL (0.000-0.034)
[2021-04-02] MEDS: CENTRAL LINE FLUSH 10 ML IV PUSH (21:56)
[2021-04-02] MEDS: SODIUM CHLORIDE 0.9% IV 1,000 ML 999 ML IV CONT (23:26)
[2021-04-03] VITALS (47 sets, daily range): BP systolic 86–134; BP diastolic 54–67; PULSE 53–96; RESP 14–24; TEMP 35.4–37.4; O2SAT 93–100
[2021-04-03] MEDS: SODIUM CHLORIDE 0.9% IV 1,000 ML 75 ML IV CONT ×2 (00:28→16:53)
[2021-04-03] MEDS: FENTANYL 2,500MCG/NS250ML(*CRX 2,500 MCG/250 ML BAG 15 MCG IV CONT ×2 (01:44→18:28)
[2021-04-03 01:53] LABS: Glucose Point of Care 161 mg/dl (65-105)
[2021-04-03] MEDS: MIDAZOLAM 100MG/NS 100ML(*CRX) 100 MG/100 ML BAG IV CONT ×2 (03:39→21:49)
[2021-04-03] MEDS: SUCRALFATE SUSP 100 MG/ML 10 ML UDC 1000 MG FEED TUBE ×3 (05:45→16:54)
[2021-04-03] MEDS: BARICITINIB 1 MG TABLET PO (05:45)
[2021-04-03] MEDS: HEPARIN SODIUM 5,000 UNITS/ML VIAL 5000 UNITS SUB-Q ×3 (05:45→20:34)
[2021-04-03] MEDS: CENTRAL LINE FLUSH 10 ML IV PUSH ×3 (05:46→20:39)
[2021-04-03 06:12] LABS: Glucose Point of Care 126 mg/dl (65-105)
[2021-04-03 06:22] LABS: Basophils Percent Auto 0.1 % (0.2-1.2); Hematocrit 25.6 % (37.0-47.0); Immature Granulocyte Absolute 0.09 K/mm3 (0.00-0.031); Immature Granulocyte Percent A 0.9 % (0-0.5); Lymphocytes Absolute Auto 0.31 K/mm3 (0.9-3.2); Lymphocytes Percent Auto 3.1 % (18.3-44.2); Mean Corpuscular HGB Conc 31.3 g/dl (32-36); Mean Corpuscular Hemoglobin 29.3 pg (26-34); Mean Corpuscular Volume 93.8 fl (80-100); Monocytes Absolute Auto 0.3 K/mm3 (0.1-0.6); Monocytes Percent Auto 2.6 % (2.6-8.5); Neutrophils Absolute Auto 9.4 K/mm3 (1.3-6.7); Neutrophils Percent Auto 93.3 % (45.5-73.1); Platelet Count Result 144 k/mm3 (150-375); Red Blood Count 2.73 M/mm3 (4.2-5.4); Red Cell Distribution Width 15.5 % (11.5-14.5); White Blood Count 10.1 K/mm3 (4.5-10.0)
[2021-04-03 06:31] LABS: Alanine Aminotransferase 30 U/L (4-35); Albumin Level 2.9 g/dL (3.5-5.1); Alkaline Phosphatase 67 U/L (38-126); Anion Gap 10 mmol/L (8-16); Aspartate Amino Transferase 57 U/L (14-36); Bilirubin,Total 0.3 mg/dL (0.2-1.3); Blood Urea Nitrogen 67 mg/dL (7-17); Calcium 7.8 mg/dL (8.4-10.2); Carbon Dioxide 20 mmol/L (22-30); Chloride 109 mmol/L (98-107); Estimated CRCL calculation 11 ml/min; Estimated Glomerular Filt Rate 20; Glucose 140 mg/dL (65-110); Magnesium 2.2 mg/dL (1.6-2.3); Phosphorus 6.6 mg/dL (2.5-4.5); Sodium 139 mmol/L (137-145)
[2021-04-03 06:47] LABS: Troponin I 0.164 ng/mL (0.000-0.034)
[2021-04-03 06:57] LABS: Alveolar/Arterial O2 Gradient 202.8 mmHg; Base Excess ABG -8.5 mEq/l (+/-2.0); Carboxyhemoglobin 0.3 % THb (0-2.0); Fractional Inspired Oxygen 50 %; HCO3 ABG 18.9 mEq/l (22.0-26.0); Methemoglobin ABG 0.3 %THb (0-1.5); Oxygen Content ABG 12.4 %vol (16.0-22.0); Oxygen Saturation ABG 96.3 % (95.0-100.0); Oxyhemoglobin 95.3 % THb (90.0-100.0); PCO2 ABG 47.7 mmHg (35.0-45.0); Reduced Hemoglobin 4.1 %THb (0-5.0); Total Hemoglobin 9.1 g/dL (12.0-18.0)
[2021-04-03 06:58] LABS: pH ABG 7.215 (7.350-7.450)
[2021-04-03 06:59] LABS: Arterial Blood Gas Ventilator rate 14 /MIN; Device VENTILATOR; Modified Allen's Test Pass; Site Drawn RIGHT RADIAL
[2021-04-03 07:00] LABS: Arterial Blood Gas PEEP 10 cmH2O; Arterial Blood Gas Tidal Volume 290 ml; Arterial Blood Gas Vent Mode CMV
[2021-04-03] MEDS: PANTOPRAZOLE SODIUM IV 40 MG VIAL IV PUSH (08:51)
[2021-04-03] MEDS: MINERAL OIL/WHITE PETROLATUM OINTMENT 1 APPLIC EACH EYE ×2 (08:51→20:34)
[2021-04-03 11:43] LABS: Glucose Point of Care 112 mg/dl (65-105)
--- NOTE | 2021-04-03 13:38 | WPDINTPN ---
Progress Note: A&P Assessment and Plan (1) Acute respiratory failure: Qualifiers: Respiratory failure complication: hypoxia Qualified Code(s): J96.01 - Acute respiratory failure with hypoxia Code(s): J96.00 - Acute respiratory failure, unspecified whether with hypoxia or hypercapnia Status: Acute Assessment and Plan: Acute hypoxic respiratory failure likely related to COVID pneumonia -chest x-ray and ABGs reviewed, ventilator adjusted -patient was hypoxic on 100% FiO2 on 04/02/2021 and was placed in prone position -currently on 50% FiO2, peep has been decreased to 8 with adequate O2 sats. --sedated with fentanyl and Versed infusion, patient was also dyssynchronous with the ventilator and was started on Nimbex infusion on 04/02/2021 -chest x-ray shows stable airspace disease bilaterally. -ABGs reviewed, ventilator adjusted -continue sedation with fentanyl Versed infusion and neuromuscular blockade with Nimbex infusion -start patient on Pulmicort (2) Pneumonia due to severe acute respiratory syndrome coronavirus 2 (SARS-CoV-2): Code(s): U07.1 - COVID-19; J12.82 - Pneumonia due to coronavirus disease 2018 Status: Acute Assessment and Plan: SARS-CoV-2 PCR positive at the outside hospital in [facility] -inflammatory markers have been ordered -continue dexamethasone x10 days -continue Baricitinib x14 days -patient is not a candidate for remdesivir given decreased creatinine clearance (3) ALIX (acute kidney injury): Code(s): N17.9 - Acute kidney failure, unspecified Status: Acute Assessment and Plan: Patient with elevated creatinine on admission at the outside hospital unknown if patient has any chronic component -will give gentle IV fluids and evaluate -continue monitor urine output, renal function electrolytes -renal ultrasound with mild bilateral renal atrophy, echogenic kidneys, medical renal disease, no hydronephrosis -CK levels trending down -continue maintenance IV fluids (4) DVT prophylaxis: Code(s): Z29.9 - Encounter for prophylactic measures, unspecified Status: Acute Assessment and Plan: DVT prophylaxis: Will add heparin SQ Stress ulcer prophylaxis: Protonix Additional Plan Nutrition, will start tube feeds today Family has been updated Code status: Full code Critical care time spent: 33 minutes This dictation may have been done utilizing a voice recognition system. Attempts have been made to correct errors. However, there may be uncorrected grammatical, spelling, and recognition errors present. Due to a high probability of clinically significant, life threatening deterioration, the patient required my highest level of preparedness to intervene emergently and I personally spent this critical care time directly and personally managing the patient. This critical care time included obtaining a history; examining the patient; pulse oximetry; ordering and review of studies; arranging urgent treatment with development of a management plan; evaluation of patient's response to treatment; frequent reassessment; and discussions with other providers. It was exclusive of separately billable procedures and treating other patients and teaching time. Please see Assessment and Plan section and the rest of the note for further information on patient assessment and treatment Subjective Date/time seen: 04/03/21 13:38 Interval history: Reason for consult: Acute hypoxic respiratory failure, COVID pneumonia, acute kidney injury, hyperglycemia 04/03/2021: Patient remains intubated on CMV mode of ventilation, 10 of PEEP, 50% FiO2. Patient was placed in prone position yesterday as she was requiring 100% FiO2 with O2 sats around 90%. Her 0 FiO2 has decreased to 50% this morning. I also decreased her PEEP to 8 and patient is tolerating well. Patient was dyssynchronous with the ventilator and was started on neuromuscular blockade with Nimbex infusion. Sarai
--- NOTE | 2021-04-03 13:40 | PM.IMPN ---
Progress Note: A&P Assessment and Plan (1) Pneumonia due to severe acute respiratory syndrome coronavirus 2 (SARS-CoV-2): Code(s): U07.1 - COVID-19; J12.82 - Pneumonia due to coronavirus disease 2019 Status: Acute (2) Acute respiratory failure: Qualifiers: Respiratory failure complication: hypoxia Qualified Code(s): J96.01 - Acute respiratory failure with hypoxia Code(s): J96.00 - Acute respiratory failure, unspecified whether with hypoxia or hypercapnia Status: Acute (3) Abnormal LFTs: Code(s): R94.5 - Abnormal results of liver function studies Status: Acute (4) Rhabdomyolysis due to COVID-19: Code(s): U07.1 - COVID-19; M62.82 - Rhabdomyolysis Status: Acute (5) Leukocytosis: Qualifiers: Leukocytosis type: unspecified Qualified Code(s): D72.829 - Elevated white blood cell count, unspecified Code(s): D72.829 - Elevated white blood cell count, unspecified Status: Acute (6) Chronic anemia: Code(s): D64.9 - Anemia, unspecified Status: Acute (7) Elevated d-dimer: Code(s): R79.89 - Other specified abnormal findings of blood chemistry Status: Acute (8) Metabolic acidosis: Code(s): E87.2 - Acidosis Status: Acute (9) Hyperphosphatemia: Code(s): E83.39 - Other disorders of phosphorus metabolism Status: Acute (10) Thrombocytopenia: Code(s): D69.6 - Thrombocytopenia, unspecified Status: Acute (11) Acute renal failure with oliguria: Code(s): N17.9 - Acute kidney failure, unspecified; R34 - Anuria and oliguria Status: Acute (12) Bradycardia: Code(s): R00.1 - Bradycardia, unspecified Status: Acute (13) Hypotension: Qualifiers: Hypotension type: hypotension due to hypovolemia Qualified Code(s): I95.89 - Other hypotension; E86.1 - Hypovolemia Code(s): I95.9 - Hypotension, unspecified Status: Acute (14) Elevated troponin: Code(s): R77.8 - Other specified abnormalities of plasma proteins Status: Acute Additional Plan 1. COVID pneumonia and acute respiratory failure: -patient continues to being intubated -Today is sedated and paralyzed as -daily D-dimer, ferritin, CRP 2. 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 Hypotension possibly secondary to hypovolemia: -will give 500 mL bolus 4. Oliguric renal failure: -noted to have decreased urine output over the past 2 or 3 days -creatinine stable at 2.7 -given hypotension early this morning along with bradycardia there is a possibility that the patient might decompensate further with further decline in the urine output and increase in creatinine -we will give 0.1 millimoles per non evaluate renal function -please monitor I's and O's appropriately and daily weights 5. Elevated troponin: -possibly secondary to COVID related cardiomyopathy more disclose be related to NSTEMI -will continue to trend troponin, get echo, get EKG as well 6. Elevated D-dimer: -given patient's history of COVID pneumonia this could potentially represent PE however we are unable to perform a CT angio of the chest due to ALIX. V/Q scan also not be very helpful as the patient has multiple ground-glass opacities and active pneumonia -perhaps an echo might be of some use to determine right ventricular strain if any 7. Hyperphosphatemia: -will start patient on Renvela t.i.d. 8. Metabolic acidosis (normal anion gap): -potentially secondary to ALIX on CKD -if bicarb remains less than 20, given history of CKD, would likely benefit from starting p.o. bicarb 9. Consider alternate route of nutrition Time Spent With Patient Time with patient: 15 - 25 minutes Subjective Date/time seen: 04/03/21 13:40 Interval history: 85-year-old female with past medical history significant for
--- NOTE | 2021-04-03 13:44 | ECG_ITS ---
Measurements Intervals [place] Rate: 58 P: 51 RI: 113 QRS: 34 QRSD: 82 T: 62 QT: 465 QTc: 457 Interpretive Statements SINUS BRADYCARDIA WITH SHORT RI INTERVAL BORDERLINE ST-T WAVE ABNORMALITY- DIFFUSE LEADS BASELINE ARTIFACT- III, AVL, V3, V5 BORDERLINE ECG Electronically Signed On 04-03-2021 15:03:35 CDT by Ha Christiansen D.O.
[2021-04-03 14:46] LABS: D Dimer 2.52 ug/mL (<0.48)
[2021-04-03 14:47] LABS: Creatine Kinase 1211 U/L (30-135)
[2021-04-03 14:49] LABS: Add Urine Microscopic? YES; Appearance Urine Turbid (Clear); Bilirubin Urine Negative (Negative); Blood Urine 3+ (Negative); Color Urine Yellow (Yellow); Glucose Urine UA 1+ mg/dL (Negative); Ketones Urine Negative (Negative); Leukocyte Esterase Ur 1+ LEU/UL (NEGATIVE); Nitrate Urine Negative (Negative); Protein Urine 2+ mg/dL (Negative); RBC Urine >75 /hpf (0-2); Urobilinogen Urine Negative mg/dL (<2.0); WBC Urine 21-30 /hpf (0-3)
[2021-04-03 14:51] LABS: CRP 8.9 mg/dL (<1.0)
[2021-04-03 15:12] LABS: Troponin I 0.168 ng/mL (0.000-0.034)
[2021-04-03 15:23] LABS: Ferritin > 1000.00 ng/mL (11.1-264)
[2021-04-03] MEDS: SODIUM CHLORIDE 0.9% IV 500 ML IV CONT (15:39)
[2021-04-03] MEDS: SEVELAMER CARBONATE 800 MG TABLET PO (16:54)
[2021-04-03 17:10] LABS: Glucose Point of Care 106 mg/dl (65-105)
--- NOTE | 2021-04-03 17:30 | PC.NURSE ---
Notifed Dr. almazan of low urine output. verbal order for hespan 500ml.
[2021-04-03] MEDS: hetaSTARCH 6%/NACL 500 ML 250 ML IV CONT (18:07)
[2021-04-03] MEDS: BUDESONIDE RESPULE NEB 0.5 MG/2 ML AMP INHALATION (20:12)
[2021-04-04] VITALS (38 sets, daily range): BP systolic 126–148; BP diastolic 64–78; PULSE 64–97; RESP 18–28; TEMP 36.1–37.4; O2SAT 92–97; BMI 23.3
[2021-04-04] MEDS: SUCRALFATE SUSP 100 MG/ML 10 ML UDC 1000 MG FEED TUBE ×4 (00:08→17:28)
[2021-04-04 00:20] LABS: Glucose Point of Care 135 mg/dl (65-105)
[2021-04-04] MEDS: CISATRACURIUM BESYLATE 200 MG in DEXTROSE 5% 80 ML IV CONT (00:50)
[2021-04-04] MEDS: SODIUM CHLORIDE 0.9% IV 1,000 ML 75 ML IV CONT ×2 (00:51→14:37)
[2021-04-04 05:22] LABS: Basophils Percent Auto 0.1 % (0.2-1.2); Hematocrit 25.8 % (37.0-47.0); Immature Granulocyte Absolute 0.09 K/mm3 (0.00-0.031); Immature Granulocyte Percent A 0.9 % (0-0.5); Immature Platelet Fraction Pct 4.3 % (0.9-11.2); Mean Corpuscular Hemoglobin 29.5 pg (26-34); Mean Corpuscular Volume 95.2 fl (80-100); Mean Platelet Volume 11.1 fl (7.4-10.4); Monocytes Absolute Auto 0.2 K/mm3 (0.1-0.6); Monocytes Percent Auto 2.4 % (2.6-8.5); Neutrophils Absolute Auto 9.5 K/mm3 (1.3-6.7); Neutrophils Percent Auto 93.6 % (45.5-73.1); Nucleated Red Blood Cells Perc 0.2 % (0.0-0.2); Platelet Count Result 131 k/mm3 (150-375); Red Blood Count 2.71 M/mm3 (4.2-5.4); Red Cell Distribution Width 15.5 % (11.5-14.5); White Blood Count 10.1 K/mm3 (4.5-10.0)
[2021-04-04 05:24] LABS: Alveolar/Arterial O2 Gradient 191.7 mmHg; Base Excess ABG -10.6 mEq/l (+/-2.0); Carboxyhemoglobin 0.1 % THb (0-2.0); Fractional Inspired Oxygen 45 %; HCO3 ABG 17.7 mEq/l (22.0-26.0); Methemoglobin ABG 0.2 %THb (0-1.5); Oxygen Content ABG 15.3 %vol (16.0-22.0); Oxygen Saturation ABG 90.6 % (95.0-100.0); Oxyhemoglobin 91.9 % THb (90.0-100.0); PCO2 ABG 49.1 mmHg (35.0-45.0); PO2 ABG 73.3 mmHg (80.0-100.0); PO2 FiO2 Ratio Arterial Blood 1.63 %; Reduced Hemoglobin 7.8 %THb (0-5.0); Total Hemoglobin 11.8 g/dL (12.0-18.0)
[2021-04-04 05:26] LABS: pH ABG 7.174 (7.350-7.450)
[2021-04-04 05:27] LABS: Arterial Blood Gas PEEP 8 cmH2O; Arterial Blood Gas Vent Mode CMV; Arterial Blood Gas Ventilator rate 18 /MIN; Device VENTILATOR; Modified Allen's Test Pass; Site Drawn LEFT RADIAL
[2021-04-04 05:28] LABS: Arterial Blood Gas Tidal Volume 290 ml
[2021-04-04 05:35] LABS: Alanine Aminotransferase 31 U/L (4-35); Albumin Level 2.5 g/dL (3.5-5.1); Alkaline Phosphatase 90 U/L (38-126); Anion Gap 8 mmol/L (8-16); Aspartate Amino Transferase 65 U/L (14-36); Bilirubin,Total 0.5 mg/dL (0.2-1.3); Blood Urea Nitrogen 70 mg/dL (7-17); Calcium 7.3 mg/dL (8.4-10.2); Carbon Dioxide 19 mmol/L (22-30); Chloride 111 mmol/L (98-107); Estimated CRCL calculation 10 ml/min; Estimated Glomerular Filt Rate 17; Glucose 187 mg/dL (65-110); Phosphorus 6.7 mg/dL (2.5-4.5); Potassium 5.1 mmol/L (3.4-5.0); Sodium 138 mmol/L (137-145)
[2021-04-04 05:52] LABS: Acanthocytes 2+ (NORMAL); Anisocytosis 1+ (NORMAL)
[2021-04-04] MEDS: HEPARIN SODIUM 5,000 UNITS/ML VIAL 5000 UNITS SUB-Q ×3 (06:17→21:59)
[2021-04-04] MEDS: CENTRAL LINE FLUSH 10 ML IV PUSH ×3 (06:17→21:59)
[2021-04-04] MEDS: BARICITINIB 1 MG TABLET PO (06:17)
[2021-04-04] MEDS: BUDESONIDE RESPULE NEB 0.5 MG/2 ML AMP INHALATION ×2 (08:33→20:56)
[2021-04-04] MEDS: MINERAL OIL/WHITE PETROLATUM OINTMENT 1 APPLIC EACH EYE ×2 (08:48→21:59)
[2021-04-04] MEDS: SEVELAMER CARBONATE 800 MG TABLET PO ×3 (08:48→17:28)
[2021-04-04] MEDS: PANTOPRAZOLE SODIUM IV 40 MG VIAL IV PUSH (08:48)
[2021-04-04] MEDS: BUMETANIDE INJ 1 MG/4 ML VIAL 2 MG IV PUSH ×2 (08:51→17:28)
--- NOTE | 2021-04-04 10:29 | PCDIET ---
MD ordered change to Nepro. Recommend 30mL/hr goal rate for 1188kcal and 53g protein over 22 hours/day.
--- NOTE | 2021-04-04 10:34 | PM.CNNEP ---
Assessment and Plan Assessment and plan (1) Acute renal failure with oliguria: Code(s): N17.9 - Acute kidney failure, unspecified; R34 - Anuria and oliguria Status: Acute Assessment and Plan: the patient has acute kidney injury. Her creatinine went from 2.4-3.1. It is unclear what her baseline is but she probably has chronic kidney disease because on ultrasound her kidneys have atrophy. Her urinalysis is bland. She has an elevated CPK but not high enough to completely explain her renal insufficiency. This may be contributory But only in a small way. She has COVID-19 and this probably has caused most of the issue with her kidneys. She most likely has ATN. Obstruction has been ruled out by the ultrasound. Glomerulonephritis and interstitial nephritis or unlikely in this setting. Will check urine electrolytes. Will check another CPK. Will try some some Bumex to get urine output going. If she does not make much urine and electrolytes become a problem she may end up needing dialysis. (2) Metabolic acidosis: Code(s): E87.2 - Acidosis Status: Acute Assessment and Plan: The patient has acidosis. Most likely related to sepsis. The blood gas shows a mixed metabolic and respiratory acidosis. Lactic acid is normal. She does not have diabetes nor high sugars. So I doubt if this is ketoacidosis. Most likely this is uremic poisons causing the anion gap. (3) Pneumonia due to severe acute respiratory syndrome coronavirus 2 (SARS-CoV-2): Code(s): U07.1 - COVID-19; J12.82 - Pneumonia due to coronavirus disease 2019 Status: Acute Assessment and Plan: The patient has hypoxia and is requiring ventilation sedation and paralytics maintain her oxygenation. She is on broad-spectrum antibiotics in case there is a bacterial component. She is on dexamethasone for the COVID component. (4) Chronic anemia: Code(s): D64.9 - Anemia, unspecified Status: Acute Assessment and Plan: She is on iron as an outpatient. The globin is currently 8. Will give her some Epogen. (5) Rhabdomyolysis: Qualifiers: Rhabdomyolysis type: non-traumatic Qualified Code(s): M62.82 - Rhabdomyolysis Code(s): M62.82 - Rhabdomyolysis Status: Acute Assessment and Plan: The CPK is elevated. Will repeat this to get a trend. (6) Thrombocytopenia: Code(s): D69.6 - Thrombocytopenia, unspecified Status: Acute Assessment and Plan: Platelet count is low. Most likely result of the COVID (7) Abnormal LFTs: Code(s): R94.5 - Abnormal results of liver function studies Status: Acute Assessment and Plan: AST is 65. This could be from the liver or could be from the muscle. History of Present Illness Reason for Consult Consult date: 04/04/21 Chief Complaint Chief complaint: COVID pneumonia History of Present Illness Narrative: Alisa is an unfortunate 85-year-old lady who has hypertension, hyperlipidemia, depression, anemia, GERD, and anxiety. The patient came in the hospital on the , transferred from [facility]. The patient went there because of shortness of breath. Apparently she deteriorated and ended up on the ventilator. She was transferred [facility] ICU. She has been on isolation because she tested positive for COVID. The patient cannot give a history. All the information is gleaned from the charts. Upon arrival the patient was on 100% oxygen. She was placed in the prone position for a few hours and improved. She is now supine because during the prone position she developed quite a bit of facial edema. The patient is now on 45% oxygen. She is sedated and on paralytics. She is not on pressors. On admission her creatinine was 2.4 but is risen to 3.1. She is not making very much urine. She has received fluid boluses to treat any intravascular volume
--- NOTE | 2021-04-04 10:43 | ECHO_ITS ---
Patient Info Name: Alisa Deleon Age: 85 years : 1935 Gender: Female Ht: 62 in Wt: 124 lbs BSA: 1.57 m2 HR: 83 bpm BP: 133 / 71 mmHg Heart Rhythm: Sinus Rhythm Exam Date: 04/04/2021 9:49 AM Exam Location: [facility] Patient Status: Inpatient Admit Date: 04/01/2021 Staff Ordering Physician: Kana Rivas MD Cardiac Cath Technologist: Horace Garcia, SHARON, RT Attending Provider: Lissett Cox MD Referring Physician: Evelyn JUAREZ; Exam Type: CA echo doppler color flow Study Info Indications I50.9 - Heart failure, unspecified Complete two-dimensional, color flow and Doppler transthoracic echocardiogram is performed. Summary 1. Complete two-dimensional, color flow and Doppler transthoracic echocardiogram is performed. 2. Left ventricular systolic function is normal, estimated at 65-70%. 3. There is moderately increased left ventricular wall thickness. 4. The left ventricular diastolic function is grade I diastolic dysfunction. 5. There is mild aortic valve stenosis with a peak velocity of 193 cm/s, mean gradient of 7 mmHg, and aortic valve area of 2.0 cm2. 6. There is mild mitral valve stenosis. 7. There is mild mitral valve regurgitation. 8. The mitral valve has thickened leaflets and myxomatous leaflets. 9. The mitral valve annulus is severely calcified. 10. There is moderate tricuspid valve regurgitation. 11. Severe pulmonary hypertension, estimated pulmonary arterial systolic pressure is 71 mmHg. 12. There is a small to moderate (0.9 to 1.3cm) pericardial effusion circumferential but largest anteriorly without tamponade physiology. 13. Left pleural effusion. 14. Dilated inferior vena cava with no collapse upon inspiration consistent with significantly elevated right atrial pressure, 15 mmHg. Left Ventricle Left ventricular chamber dimension is normal. Left ventricular systolic function is normal, estimated at 65-70%. There is moderately increased left ventricular wall thickness. The left ventricular diastolic function is grade I diastolic dysfunction. Right Ventricle Right ventricular chamber dimension is normal. Right ventricular systolic function is normal. Left Atria Left atrial chamber dimension is normal. Right Atria Right atrial chamber dimension is normal. Aortic Valve The aortic valve is probable trileaflet. There is mild aortic valve stenosis with a peak velocity of 193 cm/s, mean gradient of 7 mmHg, and aortic valve area of 2.0 cm2. There is no aortic valve regurgitation. There is mild aortic valve calcification. Pulmonic Valve The pulmonic valve is normal. There is trace pulmonic regurgitation. Mitral Valve The mitral valve has thickened leaflets and myxomatous leaflets. There is mild mitral valve stenosis. There is mild mitral valve regurgitation. The mitral valve annulus is severely calcified. Tricuspid Valve The tricuspid valve leaflets are normal. There is moderate tricuspid valve regurgitation. Severe pulmonary hypertension, estimated pulmonary arterial systolic pressure is 71 mmHg. Pericardium/Pleural The pericardium appears normal. There is a small to moderate (0.9 to 1.3cm) pericardial effusion circumferential but largest anteriorly without tamponade physiology. Left pleural effusion. Inferior Vena Cava Dilated inferior vena cava with no collapse upon inspiration consistent with significantly elevated right atrial pressure, 15 mmHg. Aorta The aortic root size at the sinus of Valsalva is normal.
[2021-04-04] MEDS: FENTANYL 2,500MCG/NS250ML(*CRX 2,500 MCG/250 ML BAG 15 MCG IV CONT (11:00)
[2021-04-04 11:31] LABS: Creatine Kinase 1103 U/L (30-135)
[2021-04-04] MEDS: INSULIN ASPART (*BKC) 100 UNITS/ML SUB-Q ×2 (12:41→17:27)
[2021-04-04] MEDS: EPOETIN ALFA 10,000 UNITS/ML VIAL 10000 UNITS SUB-Q (12:41)
[2021-04-04 12:54] LABS: Glucose Point of Care 263 mg/dl (65-105)
[2021-04-04 13:49] LABS: Eosinophil Urine None Seen % (None Seen)
--- NOTE | 2021-04-04 13:56 | WPDINTPN ---
Progress Note: A&P Assessment and Plan (1) Acute respiratory failure: Qualifiers: Respiratory failure complication: hypoxia Qualified Code(s): J96.01 - Acute respiratory failure with hypoxia Code(s): J96.00 - Acute respiratory failure, unspecified whether with hypoxia or hypercapnia Status: Acute Assessment and Plan: Acute hypoxic respiratory failure likely related to COVID pneumonia -chest x-ray today: Some interval progression in patchy airspace opacities throughout both lungs consistent with pneumonia versus less likely pulmonary edema. -currently on 60% FiO2, and PEEP of 10, FiO2 and PEEP had to be increased as patient was desaturating -continue sedation with fentanyl Versed infusion and neuromuscular blockade with Nimbex infusion -continue bronchodilators and Pulmicort Pulmicort (2) Pneumonia due to severe acute respiratory syndrome coronavirus 2 (SARS-CoV-2): Code(s): U07.1 - COVID-19; J12.82 - Pneumonia due to coronavirus disease 2018 Status: Acute Assessment and Plan: SARS-CoV-2 PCR positive at the outside hospital in [facility] -inflammatory markers have been ordered -continue dexamethasone x10 days (initiated 04/02/2021) -continue Baricitinib x14 days (initiated on 04/02/2021) -patient is not a candidate for remdesivir given decreased creatinine clearance (3) ALIX (acute kidney injury): Code(s): N17.9 - Acute kidney failure, unspecified Status: Acute Assessment and Plan: Patient with elevated creatinine on admission at the outside hospital unknown if patient has any chronic component -patient on gentle IV hydration with minimal urine output -chest x-ray worsening could be related to volume overload -renal ultrasound with mild bilateral renal atrophy, echogenic kidneys, medical renal disease, no hydronephrosis -CK levels trending down -continue maintenance IV fluids -nephrology consulted, recommended Bumex, if she does not improve will require dialysis (4) DVT prophylaxis: Code(s): Z29.9 - Encounter for prophylactic measures, unspecified Status: Acute Assessment and Plan: DVT prophylaxis: Will add heparin SQ Stress ulcer prophylaxis: Protonix (5) Elevated troponin: Code(s): R77.8 - Other specified abnormalities of plasma proteins Status: Acute Assessment and Plan: Likely related to type 2 infarct related to COVID pneumonia -echocardiogram 04/24/2021: Shows EF of 65-70%, grade 1 diastolic dysfunction, bilateral valve stenosis, mild mitral valve stenosis moderate tricuspid valve regurg, severe pulmonary hypertension with RVSP of 71 mmHg. Additional Plan Nutrition: continue tube feeds Code status: Full code Critical care time spent: 33 minutes This dictation may have been done utilizing a voice recognition system. Attempts have been made to correct errors. However, there may be uncorrected grammatical, spelling, and recognition errors present. Due to a high probability of clinically significant, life threatening deterioration, the patient required my highest level of preparedness to intervene emergently and I personally spent this critical care time directly and personally managing the patient. This critical care time included obtaining a history; examining the patient; pulse oximetry; ordering and review of studies; arranging urgent treatment with development of a management plan; evaluation of patient's response to treatment; frequent reassessment; and discussions with other providers. It was exclusive of separately billable procedures and treating other patients and teaching time. Please see Assessment and Plan section and the rest of the note for further information on patient assessment and treatment Subjective Date/time seen: 04/04/21 13:56 Interval history: Reason for consult: Acute hypoxic respiratory failure, COVID pneumonia, acute kidney injury, hyperglycemia : Patient remains intubated on
[2021-04-04] MEDS: ALBUTEROL SULFATE NEB 2.5 MG/0.5 ML INH INHALATION ×2 (14:07→20:55)
[2021-04-04] MEDS: IPRATROPIUM BR 0.02% INH SOLN 0.5 MG/2.5 ML VIAL INHALATION ×2 (14:07→20:55)
[2021-04-04 14:21] LABS: Base Excess ABG -11.2 mEq/l (+/-2.0); Fractional Inspired Oxygen 60 %; HCO3 ABG 17.1 mEq/l (22.0-26.0); Oxygen Content ABG 12.5 %vol (16.0-22.0); Oxygen Saturation ABG 92.7 % (95.0-100.0); Oxyhemoglobin 93.5 % THb (90.0-100.0); PCO2 ABG 49.2 mmHg (35.0-45.0); PO2 ABG 81.7 mmHg (80.0-100.0); PO2 FiO2 Ratio Arterial Blood 1.36 %; Total Hemoglobin 9.4 g/dL (12.0-18.0)
[2021-04-04 14:22] LABS: Device VENTILATOR; Site Drawn LEFT BRACHIAL; pH ABG 7.158 (7.350-7.450)
[2021-04-04 14:23] LABS: Arterial Blood Gas PEEP 10 cmH2O; Arterial Blood Gas Tidal Volume 290 ml; Arterial Blood Gas Vent Mode CMV; Arterial Blood Gas Ventilator rate 24 /MIN
[2021-04-04] MEDS: SODIUM BICARBONATE 8.4% 50 MEQ/50 ML SYRINGE 100 MEQ IV PUSH (14:37)
[2021-04-04 16:26] LABS: Creatinine Urine 122.7 mg/dL; Potassium Urine Random 36.6 meq/L; Sodium Urine Random 16 meq/L; Total Protein Urine Random 118 mg/dL; Ur Ttl Prot Creatinine Ratio 0.96 mg/mg (0-0.20)
[2021-04-04] MEDS: METOCLOPRAMIDE HCL INJ 10 MG/2 ML VIAL IV PUSH ×2 (17:26→23:45)
[2021-04-04] MEDS: MIDAZOLAM 100MG/NS 100ML(*CRX) 100 MG/100 ML BAG IV CONT (17:30)
[2021-04-04 17:52] LABS: Glucose Point of Care 206 mg/dl (65-105)
[2021-04-04 23:57] LABS: Glucose Point of Care 143 mg/dl (65-105)
[2021-04-05] VITALS (48 sets, daily range): BP systolic 110–145; BP diastolic 57–75; PULSE 79–142; RESP 28–285; TEMP 36.3–37.8; O2SAT 84–100
[2021-04-05] MEDS: SUCRALFATE SUSP 100 MG/ML 10 ML UDC 1000 MG FEED TUBE ×5 (00:32→23:05)
[2021-04-05] MEDS: IPRATROPIUM BR 0.02% INH SOLN 0.5 MG/2.5 ML VIAL INHALATION ×3 (02:14→14:34)
[2021-04-05] MEDS: ALBUTEROL SULFATE NEB 2.5 MG/0.5 ML INH INHALATION ×3 (02:15→14:34)
[2021-04-05] MEDS: FENTANYL 2,500MCG/NS250ML(*CRX 2,500 MCG/250 ML BAG 15 MCG IV CONT ×2 (02:46→18:38)
--- NOTE | 2021-04-05 03:51 | PC.NURSE ---
Dr. Colin notified of increased HR, ST 110-120 w/ PAC's. Patient takes Lopressor 25mg PO BID at home. Patient currently has high residuals. Give Lopressor 5mg IV x1 now.
[2021-04-05] MEDS: METOPROLOL TARTRATE INJ 5 MG/5 ML VIAL IV PUSH ×2 (04:02→23:03)
[2021-04-05] MEDS: SODIUM CHLORIDE 0.9% IV 1,000 ML 75 ML IV CONT (04:06)
[2021-04-05 04:35] LABS: Basophils Percent Auto 0.1 % (0.2-1.2); Hematocrit 25.8 % (37.0-47.0); Immature Granulocyte Absolute 0.18 K/mm3 (0.00-0.031); Immature Granulocyte Percent A 1.6 % (0-0.5); Lymphocytes Absolute Auto 0.19 K/mm3 (0.9-3.2); Lymphocytes Percent Auto 1.7 % (18.3-44.2); Mean Corpuscular Volume 96.6 fl (80-100); Mean Platelet Volume 10.9 fl (7.4-10.4); Monocytes Absolute Auto 0.5 K/mm3 (0.1-0.6); Monocytes Percent Auto 4.1 % (2.6-8.5); Neutrophils Absolute Auto 10.2 K/mm3 (1.3-6.7); Neutrophils Percent Auto 92.5 % (45.5-73.1); Nucleated Red Blood Cells Perc 0.3 % (0.0-0.2); Platelet Count Result 142 k/mm3 (150-375); Red Blood Count 2.67 M/mm3 (4.2-5.4); Red Cell Distribution Width 15.5 % (11.5-14.5); White Blood Count 11.1 K/mm3 (4.5-10.0)
[2021-04-05 05:18] LABS: Alveolar/Arterial O2 Gradient 257.5 mmHg; Base Excess ABG -8.6 mEq/l (+/-2.0); Carboxyhemoglobin 0.3 % THb (0-2.0); Fractional Inspired Oxygen 55 %; HCO3 ABG 19.1 mEq/l (22.0-26.0); Methemoglobin ABG 0.2 %THb (0-1.5); Oxygen Content ABG 11.7 %vol (16.0-22.0); Oxygen Saturation ABG 92.7 % (95.0-100.0); Oxyhemoglobin 93.6 % THb (90.0-100.0); PCO2 ABG 50.1 mmHg (35.0-45.0); PO2 ABG 78.9 mmHg (80.0-100.0); PO2 FiO2 Ratio Arterial Blood 1.43 %; Reduced Hemoglobin 5.9 %THb (0-5.0); Total Hemoglobin 8.8 g/dL (12.0-18.0)
[2021-04-05 05:19] LABS: pH ABG 7.199 (7.350-7.450)
[2021-04-05 05:20] LABS: Arterial Blood Gas Vent Mode CMV; Arterial Blood Gas Ventilator rate 28 /MIN; Device VENTILATOR; Modified Allen's Test Pass; Site Drawn RIGHT RADIAL
[2021-04-05 05:21] LABS: Arterial Blood Gas PEEP 10 cmH2O; Arterial Blood Gas Tidal Volume 290 ml
[2021-04-05 05:34] LABS: Alanine Aminotransferase 28 U/L (4-35); Albumin Level 2.3 g/dL (3.5-5.1); Alkaline Phosphatase 69 U/L (38-126); Anion Gap 7 mmol/L (8-16); Aspartate Amino Transferase 53 U/L (14-36); Bilirubin,Total 0.4 mg/dL (0.2-1.3); Blood Urea Nitrogen 75 mg/dL (7-17); Calcium 7.4 mg/dL (8.4-10.2); Carbon Dioxide 21 mmol/L (22-30); Chloride 110 mmol/L (98-107); Estimated CRCL calculation 8 ml/min; Estimated Glomerular Filt Rate 14; Glucose 200 mg/dL (65-110); Magnesium 2.1 mg/dL (1.6-2.3); Phosphorus 6.7 mg/dL (2.5-4.5); Potassium 4.7 mmol/L (3.4-5.0); Sodium 138 mmol/L (137-145)
[2021-04-05] MEDS: METOCLOPRAMIDE HCL INJ 10 MG/2 ML VIAL IV PUSH ×4 (05:36→23:05)
[2021-04-05] MEDS: BARICITINIB 1 MG TABLET PO (05:37)
[2021-04-05] MEDS: HEPARIN SODIUM 5,000 UNITS/ML VIAL 5000 UNITS SUB-Q ×2 (05:38→18:28)
[2021-04-05] MEDS: CENTRAL LINE FLUSH 10 ML IV PUSH ×3 (05:46→20:41)
[2021-04-05] MEDS: BUDESONIDE RESPULE NEB 0.5 MG/2 ML AMP INHALATION (07:39)
[2021-04-05] MEDS: SODIUM BICARBONATE 8.4% 50 MEQ/50 ML SYRINGE 100 MEQ IV PUSH (07:52)
[2021-04-05] MEDS: MINERAL OIL/WHITE PETROLATUM OINTMENT 1 APPLIC EACH EYE ×2 (07:59→20:41)
[2021-04-05] MEDS: BUMETANIDE INJ 1 MG/4 ML VIAL 2 MG IV PUSH ×2 (08:00→16:49)
[2021-04-05] MEDS: PANTOPRAZOLE SODIUM IV 40 MG VIAL IV PUSH (08:00)
[2021-04-05] MEDS: SEVELAMER CARBONATE 800 MG TABLET PO ×3 (08:00→16:48)
[2021-04-05 08:05] LABS: Band Neutrophils Percent 6 % (0-6); Lymphocytes Absolute Manual 0.55 K/mm3 (1.1-4.5); Monocytes Absolute Manual 0.33 K/mm3 (0.1-0.90); Monocytes Percent Manual 3 % (3-9); Neutrophils Absolute Manual 10.21 K/mm3 (1.7-7.2); Neutrophils Percent Manual 86 % (46-73); Platelet Estimate Adequate (Adequate); Total Cells Counted 100
[2021-04-05 08:08] LABS: Acanthocytes 2+ (NORMAL); Anisocytosis 1+ (NORMAL); Atypical Lymphocytes Present; Schistocytes 1+ (NORMAL)
[2021-04-05 08:10] LABS: Hypochromasia 1+ (NORMAL)
[2021-04-05] MEDS: SODIUM BICARBONATE TAB 650 MG TABLET 1300 MG PO ×2 (08:10→16:51)
--- NOTE | 2021-04-05 09:51 | PM.PNNEP ---
Progress Note: A&P Assessment and Plan (1) Acute renal failure with oliguria: Code(s): N17.9 - Acute kidney failure, unspecified; R34 - Anuria and oliguria Status: Acute Assessment and Plan: the patient has acute kidney injury. Her creatinine went from 2.4-3.1. It is unclear what her baseline is but she probably has chronic kidney disease because on ultrasound her kidneys have atrophy. Her urinalysis is bland. She has an elevated CPK but not high enough to completely explain her renal insufficiency. With no blood in the urine I doubt if this is adding much. She has COVID-19 and this probably has caused most of the issue with her kidneys. She most likely has ATN. Her numbers are not too bad right now and she is only on 55% FiO2. Will give another day to see if her urine output starts to cook pickled meat. Consider dialysis tomorrow if she is not improving. (2) Metabolic acidosis: Code(s): E87.2 - Acidosis Status: Acute Assessment and Plan: The patient has acidosis. Most likely related to sepsis. The blood gas shows a mixed metabolic and respiratory acidosis. PH was below 7.2. Dr. Martins gave her some bicarb. Most likely this is uremic poisons causing the anion gap. (3) Pneumonia due to severe acute respiratory syndrome coronavirus 2 (SARS-CoV-2): Code(s): U07.1 - COVID-19; J12.82 - Pneumonia due to coronavirus disease 2019 Status: Acute Assessment and Plan: The patient has hypoxia and is requiring ventilation sedation and paralytics maintain her oxygenation. She is on broad-spectrum antibiotics in case there is a bacterial component. She is on dexamethasone for the COVID component. (4) Chronic anemia: Code(s): D64.9 - Anemia, unspecified Status: Acute Assessment and Plan: She is on iron as an outpatient. The globin is currently 8. She is getting Epogen. (5) Rhabdomyolysis: Qualifiers: Rhabdomyolysis type: non-traumatic Qualified Code(s): M62.82 - Rhabdomyolysis Code(s): M62.82 - Rhabdomyolysis Status: Acute Assessment and Plan: The CPK is elevated. Will repeat this to get a trend. (6) Thrombocytopenia: Code(s): D69.6 - Thrombocytopenia, unspecified Status: Acute Assessment and Plan: Platelet count is low. Most likely result of the COVID (7) Abnormal LFTs: Code(s): R94.5 - Abnormal results of liver function studies Status: Acute Assessment and Plan: AST is 65. This could be from the liver or could be from the muscle. Subjective Date/time seen: 04/05/21 09:51 Interval history: And he is still on the ventilator. Go to is at 55% On no pressors. She has a little bit of swelling. Exam Narrative: WDWN female sedated and on paralytics on the ventilator in the ICU skin no rash head ncat lungs coarse bilaterally cor reg no rub or gallop abd BS+ nontender and soft ext 1+ edema. Objective Data Vital Signs Vital Signs: Vital Signs - 24 hr 04/04/21 10:00 04/04/21 10:01 04/04/21 11:00 Temperature 36.4 C L Pulse Rate 81 81 80 Respiratory Rate 24 H 24 H 24 H Blood Pressure 142/73 H Pulse Oximetry 96 04/04/21 11:20 04/04/21 12:00 04/04/21 14:00 Temperature 37.0 C 37.3 C Pulse Rate 79 81 83 Respiratory Rate 24 H 24 H Blood Pressure 139/71 136/68 Pulse Oximetry 96 96 97 04/04/21 14:14 04/04/21 14:25 04/04/21 14:29 Temperature Pulse Rate 83 97 85 Respiratory Rate 24 H 24 H Blood Pressure Pulse Oximetry 94 04/04/21 16:00 04/04/21 16:55 04/04/21 17:24 Temperature 36.5 C Pulse Rate 84 81 78 Respiratory Rate 28 H 28 H Blood Pressure 126/64 Pulse Oximetry 96 95 04/04/21 17:30 04/04/21 18:00 04/04/21 20:00 Temperature 36.1 C L 36.3 C L Pulse Rate 78 78 77 Respiratory Rate 28 H 28 H 28 H Blood Pressure 132/64 141/68 H Pulse Oximetry 93 93 04/04/21 20:56 04/04/21 21:16 04/04
--- NOTE | 2021-04-05 10:26 | PCDIET ---
Nutrition Follow-Up Complete: Nutrition Diagnosis: Inadequate oral intake related to oral intubation as evidenced by need for tube feedings. Nutrition Goal: Patient to tolerate tube feedings at goal rate. Goal in progress. Patient receiving Nepro at 20mL/hr with goal of 30mL/hr. Residuals have been 330mL and below. Water flush of 30mL every 4 hours continues for tube patency. Last recorded weight is 64 kg which is up from last review. +I/O. Bowel Motility: No documented BM. Labs Reviewed: WBC (11.1), RBC (2.67), Hgb (8.0), Hct (25.8), Glu (200), BUN (75), Cr (3.7), Alb (2.3), Jonathan Ca (8.76), PO4 (6.7) Meds Noted: Albuterol, Olumiant, Pulmicort, Reglan, Bumex, Nimbex, Decadron, Epogen, Fentanyl, Atrovent, Versed, Protonix, Zosyn, Renvela, Sodium Bicarbonate, Carafate, Vancomycin Additional Notes: No documented skin breakdown. Will continue to monitor with same goal. Nutrition Monitoring and Evaluation: Follow up every Sunday/Sunday.
--- NOTE | 2021-04-05 11:09 | WPDINTPN ---
Progress Note: A&P Assessment and Plan (1) Acute respiratory failure: Qualifiers: Respiratory failure complication: hypoxia Qualified Code(s): J96.01 - Acute respiratory failure with hypoxia Code(s): J96.00 - Acute respiratory failure, unspecified whether with hypoxia or hypercapnia Status: Acute Assessment and Plan: Acute hypoxic respiratory failure secondary to COVID pneumonia -chest x-ray reviewed and shows persistent diffuse lung disease -advance ET tube by 2 cm -currently on 55% FiO2, and PEEP of 10, wean FiO2 if possible -ABG reviewed. Permissive hypercapnia -continue sedation with fentanyl Versed infusion and neuromuscular blockade with Nimbex infusion -continue bronchodilators and Pulmicort Pulmicort -continue daily prone ventilation for 18 hours as tolerated (2) Pneumonia due to severe acute respiratory syndrome coronavirus 2 (SARS-CoV-2): Code(s): U07.1 - COVID-19; J12.82 - Pneumonia due to coronavirus disease 2018 Status: Acute Assessment and Plan: SARS-CoV-2 PCR positive at the outside hospital in [facility] -monitor inflammatory markers -continue dexamethasone x10 days (initiated 04/02/2021) -continue Baricitinib x14 days (initiated on 04/02/2021) -patient is not a candidate for remdesivir due to acute kidney injury (3) ALIX (acute kidney injury): Code(s): N17.9 - Acute kidney failure, unspecified Status: Acute Assessment and Plan: Patient with elevated creatinine on admission at the outside hospital unknown if patient has any chronic component -elevated phosphorus levels suggest chronic kidney disease -patient was given cautious amount IV fluids without any significant improvement. Since patient is now significantly positive on her fluid balance, I will discontinue further IV fluids -renal ultrasound with mild bilateral renal atrophy, echogenic kidneys, medical renal disease, no hydronephrosis -CK levels trending down -nephrology following, plan to continue Bumex, -she may need dialysis if if she does not improve (4) DVT prophylaxis: Code(s): Z29.9 - Encounter for prophylactic measures, unspecified Status: Acute Assessment and Plan: DVT prophylaxis: Will add heparin SQ Stress ulcer prophylaxis: Protonix (5) Elevated troponin: Code(s): R77.8 - Other specified abnormalities of plasma proteins Status: Acute Assessment and Plan: Likely related to type 2 infarct related to COVID pneumonia -echocardiogram 04/24/2021: Shows EF of 65-70%, grade 1 diastolic dysfunction, bilateral valve stenosis, mild mitral valve stenosis moderate tricuspid valve regurg, severe pulmonary hypertension with RVSP of 71 mmHg. (6) Hyperglycemia: Code(s): R73.9 - Hyperglycemia, unspecified Status: Acute Assessment and Plan: Likely secondary to steroids Continue sliding scale and Lantus (7) Acidosis: Code(s): E87.2 - Acidosis Status: Acute Assessment and Plan: Mixed metabolic and respiratory acidosis Will tolerate permissive hypercapnia Add bicarb for metabolic acidosis DC normal saline to minimize hyperchloremia (8) Sepsis: Code(s): A41.9 - Sepsis, unspecified organism Status: Acute Assessment and Plan: Patient was started on broad-spectrum antibiotics on presentation for possible secondary bacterial pneumonia She is on vancomycin and Zosyn Her UA suggests UTI although urine culture came back negative Blood cultures are negative for now I will switch antibiotics to cefepime Additional Plan Nutrition: continue tube feeds and advance to goal. She has been started on Reglan for high residuals Code status: Full code I tried calling patient's son had some cold on the number listed in the chart but there was no answer. Will try later again today. Critical care time spent: 35 minutes This dictation may have been done utilizing a voice recognition system. Attempts have been m
[2021-04-05] MEDS: INSULIN GLARGINE (*BKC) 100 UNITS/ML 12 UNITS SUB-Q (12:59)
[2021-04-05] MEDS: MIDAZOLAM 100MG/NS 100ML(*CRX) 100 MG/100 ML BAG IV CONT (13:06)
[2021-04-05 13:21] LABS: Glucose Point of Care 188 mg/dl (65-105)
[2021-04-05] MEDS: INSULIN ASPART (*BKC) 100 UNITS/ML SUB-Q (16:49)
[2021-04-05 17:08] LABS: Glucose Point of Care 204 mg/dl (65-105)
--- NOTE | 2021-04-05 17:14 | PM.IMPN ---
Progress Note: A&P Assessment and Plan (1) ARDS (adult respiratory distress syndrome): Code(s): J80 - Acute respiratory distress syndrome Status: Acute (2) Sepsis: Qualifiers: Acute renal failure type: unspecified Sepsis acute organ dysfunction status: with acute organ dysfunction Sepsis type: sepsis due to unspecified organism Severe sepsis acute organ dysfunction type: acute renal failure Severe sepsis shock status: without septic shock Qualified Code(s): A41.9 - Sepsis, unspecified organism; R65.20 - Severe sepsis without septic shock; N17.9 - Acute kidney failure, unspecified Code(s): A41.9 - Sepsis, unspecified organism Status: Acute (3) Acute renal failure with oliguria: Code(s): N17.9 - Acute kidney failure, unspecified; R34 - Anuria and oliguria Status: Acute (4) Pneumonia due to severe acute respiratory syndrome coronavirus 2 (SARS-CoV-2): Code(s): U07.1 - COVID-19; J12.82 - Pneumonia due to coronavirus disease 2018 Status: Acute (5) Metabolic acidosis: Code(s): E87.2 - Acidosis Status: Acute (6) Elevated troponin: Code(s): R77.8 - Other specified abnormalities of plasma proteins Status: Acute (7) Diastolic heart failure: Qualifiers: Heart failure chronicity: chronic Qualified Code(s): I50.32 - Chronic diastolic (congestive) heart failure Code(s): I50.30 - Unspecified diastolic (congestive) heart failure Status: Acute (8) Hypotension: Qualifiers: Hypotension type: hypotension due to hypovolemia Qualified Code(s): I95.89 - Other hypotension; E86.1 - Hypovolemia Code(s): I95.9 - Hypotension, unspecified Status: Acute (9) Bradycardia: Code(s): R00.1 - Bradycardia, unspecified Status: Acute (10) Thrombocytopenia: Code(s): D69.6 - Thrombocytopenia, unspecified Status: Acute (11) Hyperphosphatemia: Code(s): E83.39 - Other disorders of phosphorus metabolism Status: Acute (12) Elevated d-dimer: Code(s): R79.89 - Other specified abnormal findings of blood chemistry Status: Acute (13) Chronic anemia: Code(s): D64.9 - Anemia, unspecified Status: Acute (14) Leukocytosis: Qualifiers: Leukocytosis type: unspecified Qualified Code(s): D72.829 - Elevated white blood cell count, unspecified Code(s): D72.829 - Elevated white blood cell count, unspecified Status: Acute (15) Rhabdomyolysis: Qualifiers: Rhabdomyolysis type: non-traumatic Qualified Code(s): M62.82 - Rhabdomyolysis Code(s): M62.82 - Rhabdomyolysis Status: Acute (16) Abnormal LFTs: Code(s): R94.5 - Abnormal results of liver function studies Status: Acute (17) ALIX (acute kidney injury): Code(s): N17.9 - Acute kidney failure, unspecified Status: Acute Additional Plan 1. COVID pneumonia and acute respiratory failure: -patient continues to being intubated -Today is sedated and paralyzed as -daily D-dimer, ferritin, CRP 4. Oliguric renal failure: -continuing to have declining urine output -creatinine uptrending -Nephrology on board -considering dialysis soon Time Spent With Patient Time with patient: 15 - 25 minutes Subjective Date/time seen: 04/05/21 17:14 Interval history: 85-year-old female with past medical history significant for hypertension, hyperlipidemia, iron deficiency anemia presented to outside hospital with respiratory distress and was transferred to [facility]. She required intubation and continued ventilatory support. She is being managed as a case of COVID-19 pneumonia with concerns for diffuse lung infiltrates. She is currently in the ICU intubated and sedated continuing to receive Baricitinib in addition to Decadron for management of COVID pneumonia. In addition she is also receiving IV Vanc and Zosyn due to concerns for bacterial superinfection an
[2021-04-05 20:47] LABS: Glucose Point of Care 131 mg/dl (65-105)
[2021-04-05 23:24] LABS: Glucose Point of Care 91 mg/dl (65-105)
[2021-04-06] VITALS (37 sets, daily range): BP systolic 130–197; BP diastolic 62–86; PULSE 77–94; RESP 28–29; TEMP 36.2–36.7; O2SAT 90–100
[2021-04-06] MEDS: CISATRACURIUM BESYLATE 200 MG in DEXTROSE 5% 80 ML IV CONT (01:04)
[2021-04-06] MEDS: DEXTROSE 50% 25 GM/50 ML SYRINGE IV PUSH (03:47)
[2021-04-06 04:06] LABS: Glucose Point of Care 132 mg/dl (65-105)
[2021-04-06 04:06] LABS: Glucose Point of Care 51 mg/dl (65-105)
[2021-04-06 04:51] LABS: Basophils Percent Auto 0.3 % (0.2-1.2); Hematocrit 23.8 % (37.0-47.0); Hemoglobin 7.4 g/dL (12.0-15.0); Immature Granulocyte Absolute 0.36 K/mm3 (0.00-0.031); Immature Granulocyte Percent A 3.4 % (0-0.5); Lymphocytes Absolute Auto 0.34 K/mm3 (0.9-3.2); Lymphocytes Percent Auto 3.2 % (18.3-44.2); Mean Corpuscular HGB Conc 31.1 g/dl (32-36); Mean Corpuscular Hemoglobin 29.4 pg (26-34); Mean Corpuscular Volume 94.4 fl (80-100); Mean Platelet Volume 10.7 fl (7.4-10.4); Monocytes Absolute Auto 0.8 K/mm3 (0.1-0.6); Monocytes Percent Auto 7.4 % (2.6-8.5); Neutrophils Absolute Auto 9.1 K/mm3 (1.3-6.7); Neutrophils Percent Auto 85.7 % (45.5-73.1); Nucleated Red Blood Cells Absolute Auto 0.1 K/mm3 (0.0-0.012); Nucleated Red Blood Cells Perc 0.5 % (0.0-0.2); Platelet Count Result 137 k/mm3 (150-375); Red Blood Count 2.52 M/mm3 (4.2-5.4); Red Cell Distribution Width 15.5 % (11.5-14.5); White Blood Count 10.6 K/mm3 (4.5-10.0)
[2021-04-06 05:13] LABS: Alanine Aminotransferase 26 U/L (4-35); Albumin Level 2.6 g/dL (3.5-5.1); Alkaline Phosphatase 55 U/L (38-126); Anion Gap 9 mmol/L (8-16); Aspartate Amino Transferase 44 U/L (14-36); Bilirubin,Total 0.5 mg/dL (0.2-1.3); Blood Urea Nitrogen 81 mg/dL (7-17); Calcium 7.6 mg/dL (8.4-10.2); Carbon Dioxide 22 mmol/L (22-30); Chloride 107 mmol/L (98-107); Estimated CRCL calculation 8 ml/min; Estimated Glomerular Filt Rate 12; Glucose 113 mg/dL (65-110); Magnesium 2.1 mg/dL (1.6-2.3); Phosphorus 6.2 mg/dL (2.5-4.5); Potassium 4.6 mmol/L (3.4-5.0); Sodium 138 mmol/L (137-145)
[2021-04-06 05:34] LABS: Alveolar/Arterial O2 Gradient 314.4 mmHg; Base Excess ABG -7.2 mEq/l (+/-2.0); Carboxyhemoglobin 0.3 % THb (0-2.0); Fractional Inspired Oxygen 60 %; HCO3 ABG 19.9 mEq/l (22.0-26.0); Methemoglobin ABG 0.4 %THb (0-1.5); Oxygen Content ABG 10.6 %vol (16.0-22.0); Oxyhemoglobin 88.4 % THb (90.0-100.0); PCO2 ABG 48.5 mmHg (35.0-45.0); PO2 ABG 60.1 mmHg (80.0-100.0); Reduced Hemoglobin 10.9 %THb (0-5.0); Total Hemoglobin 8.5 g/dL (12.0-18.0)
[2021-04-06 05:36] LABS: pH ABG 7.232 (7.350-7.450)
[2021-04-06 05:37] LABS: Acanthocytes 2+ (NORMAL); Anisocytosis 1+ (NORMAL); Burr Cells 2+ (NORMAL); Schistocytes 1+ (NORMAL)
[2021-04-06 05:37] LABS: Modified Allen's Test Pass; Oxygen Saturation ABG 86.2 % (95.0-100.0); Site Drawn RIGHT RADIAL
[2021-04-06 05:38] LABS: Arterial Blood Gas PEEP 10 cmH2O; Arterial Blood Gas Vent Mode CMV; Arterial Blood Gas Ventilator rate 28 /MIN; Device VENTILATOR
[2021-04-06 05:39] LABS: Arterial Blood Gas Tidal Volume 290 ml
[2021-04-06] MEDS: SUCRALFATE SUSP 100 MG/ML 10 ML UDC 1000 MG FEED TUBE ×4 (05:53→23:31)
[2021-04-06] MEDS: HEPARIN SODIUM 5,000 UNITS/ML VIAL 5000 UNITS SUB-Q ×2 (05:54→17:01)
[2021-04-06] MEDS: CENTRAL LINE FLUSH 10 ML IV PUSH ×3 (05:54→20:42)
[2021-04-06] MEDS: METOCLOPRAMIDE HCL INJ 10 MG/2 ML VIAL IV PUSH ×4 (05:54→23:31)
--- NOTE | 2021-04-06 07:02 | PM.PNNEP ---
Progress Note: A&P Assessment and Plan (1) Acute renal failure with oliguria: Code(s): N17.9 - Acute kidney failure, unspecified; R34 - Anuria and oliguria Status: Acute Assessment and Plan: the patient has acute kidney injury. Her creatinine went from 2.4-3.1. It is unclear what her baseline is but she probably has chronic kidney disease because on ultrasound her kidneys have atrophy. Her urinalysis is bland. most likely COVID related ATN. Her numbers are rising not critical. Her volume status is high but FiO2 still 60%. Still having trouble getting through to the sun for permission for dialysis. She is not in dire circumstances enough to do emergency dialysis without permission. At some point hopefully the renal function will turn around. And maybe it will happen soon so that she does not need dialysis. (2) Metabolic acidosis: Code(s): E87.2 - Acidosis Status: Acute Assessment and Plan: The patient has acidosis. Most likely related to sepsis. The blood gas shows a mixed metabolic and respiratory acidosis. PH now 7.232. Her bicarbonate level is 22. Most likely this is uremic poisons causing the anion gap. (3) Pneumonia due to severe acute respiratory syndrome coronavirus 2 (SARS-CoV-2): Code(s): U07.1 - COVID-19; J12.82 - Pneumonia due to coronavirus disease 2019 Status: Acute Assessment and Plan: The patient has hypoxia and is requiring ventilation sedation and paralytics maintain her oxygenation. She is on broad-spectrum antibiotics in case there is a bacterial component. She is on dexamethasone for the COVID component. (4) Chronic anemia: Code(s): D64.9 - Anemia, unspecified Status: Acute Assessment and Plan: She is on iron as an outpatient. The hemoglobin is currently 7.4. She is getting Epogen. She may need transfusion if it falls below 7 (5) Rhabdomyolysis: Qualifiers: Rhabdomyolysis type: non-traumatic Qualified Code(s): M62.82 - Rhabdomyolysis Code(s): M62.82 - Rhabdomyolysis Status: Acute Assessment and Plan: The CPK is elevated. Will repeat this to get a trend. (6) Thrombocytopenia: Code(s): D69.6 - Thrombocytopenia, unspecified Status: Acute Assessment and Plan: Platelet count is low. Most likely result of the COVID (7) Abnormal LFTs: Code(s): R94.5 - Abnormal results of liver function studies Status: Acute Assessment and Plan: AST is 65. This could be from the liver or could be from the muscle. Subjective Date/time seen: 04/06/21 16:02 Interval history: And he is still on the ventilator. FiO2 is at 60% On no pressors. She has more swelling. Exam Narrative: WDWN female sedated and on paralytics on the ventilator in the ICU skin no rash head ncat lungs coarse bilaterally cor reg no rub or gallop abd BS+ nontender and soft ext 1-2+ edema. Objective Data Vital Signs Vital Signs: Vital Signs - 24 hr 04/05/21 16:50 04/05/21 17:25 04/05/21 18:21 Temperature 37.3 C Pulse Rate 94 98 98 Respiratory Rate 28 H 28 H Blood Pressure 117/60 Pulse Oximetry 93 95 04/05/21 18:27 04/05/21 18:38 04/05/21 20:00 Temperature 37.1 C Pulse Rate 98 98 95 Respiratory Rate 28 H 28 H 28 H Blood Pressure 114/57 L Pulse Oximetry 91 04/05/21 20:46 04/05/21 20:47 04/05/21 21:19 Temperature Pulse Rate 93 93 92 Respiratory Rate 28 H 28 H Blood Pressure 114/57 L Pulse Oximetry 93 04/05/21 22:00 04/05/21 23:38 04/05/21 23:39 Temperature 36.8 C Pulse Rate 93 80 80 Respiratory Rate 28 H 28 H Blood Pressure 131/62 Pulse Oximetry 93 95 95 04/05/21 23:44 04/06/21 00:00 04/06/21 01:04 Temperature 36.7 C Pulse Rate 81 82 84 Respiratory Rate 28 H 28 H 28 H Blood Pressure 136/64 140/66 145/69 H Pulse Oximetry 95 04/06/21 02:00 04/06/21 02:39 04/06
[2021-04-06] MEDS: MIDAZOLAM 100MG/NS 100ML(*CRX) 100 MG/100 ML BAG IV CONT (08:44)
[2021-04-06] MEDS: CALCIUM GLUC 2,000 MG/NS 100ML 2,000 MG/100 ML BAG 100 MG IVPB (08:45)
[2021-04-06] MEDS: MINERAL OIL/WHITE PETROLATUM OINTMENT 1 APPLIC EACH EYE ×2 (08:47→20:41)
[2021-04-06] MEDS: BUMETANIDE INJ 1 MG/4 ML VIAL 2 MG IV PUSH ×2 (08:47→17:01)
[2021-04-06] MEDS: SEVELAMER CARBONATE 800 MG TABLET PO ×3 (08:47→17:01)
[2021-04-06] MEDS: PANTOPRAZOLE SODIUM IV 40 MG VIAL IV PUSH (08:47)
[2021-04-06] MEDS: SODIUM BICARBONATE TAB 650 MG TABLET 1300 MG PO ×2 (08:47→17:01)
[2021-04-06 09:02] LABS: Glucose Point of Care 70 mg/dl (65-105)
--- NOTE | 2021-04-06 10:50 | WPDINTPN ---
Progress Note: A&P Assessment and Plan (1) Acute respiratory failure: Qualifiers: Respiratory failure complication: hypoxia Qualified Code(s): J96.01 - Acute respiratory failure with hypoxia Code(s): J96.00 - Acute respiratory failure, unspecified whether with hypoxia or hypercapnia Status: Acute Assessment and Plan: Acute hypoxic respiratory failure secondary to COVID pneumonia -chest x-ray reviewed and shows persistent diffuse lung disease -advance ET tube by 3 cm -currently on 60% FiO2, and PEEP of 10, wean FiO2 if possible -ABG reviewed. increase respiratory rate to 30 Permissive hypercapnia -continue sedation with fentanyl Versed infusion and neuromuscular blockade with Nimbex infusion -continue bronchodilators and Pulmicort Pulmicort -continue daily prone ventilation for 18 hours as tolerated (2) Pneumonia due to severe acute respiratory syndrome coronavirus 2 (SARS-CoV-2): Code(s): U07.1 - COVID-19; J12.82 - Pneumonia due to coronavirus disease 2018 Status: Acute Assessment and Plan: SARS-CoV-2 PCR positive at the outside hospital in [facility] -monitor inflammatory markers -continue dexamethasone x10 days (initiated 04/02/2021) - Patient was started on Baricitinib on 04/02/2021- held 04/06 due to low GFR -patient is not a candidate for remdesivir due to acute kidney injury (3) ALIX (acute kidney injury): Code(s): N17.9 - Acute kidney failure, unspecified Status: Acute Assessment and Plan: Patient with elevated creatinine on admission at the outside hospital unknown if patient has any chronic component -elevated phosphorus levels suggest chronic kidney disease -patient was given cautious amount IV fluids without any significant improvement. off IV fluids at this time -renal ultrasound with mild bilateral renal atrophy, echogenic kidneys, medical renal disease, no hydronephrosis -CK levels trending down -nephrology following, plan to continue Bumex, -she will likely need dialysis soon. I have not been able to get hold off her son to discuss despite multiple attempts until now. No indication for emergent hemodialysis at this time - Case discussed with Dr. Muñoz (4) DVT prophylaxis: Code(s): Z29.9 - Encounter for prophylactic measures, unspecified Status: Acute Assessment and Plan: DVT prophylaxis: she is onheparin SQ Stress ulcer prophylaxis: Protonix (5) Elevated troponin: Code(s): R77.8 - Other specified abnormalities of plasma proteins Status: Acute Assessment and Plan: Likely related to type 2 infarct related to COVID pneumonia -echocardiogram 04/24/2021: Shows EF of 65-70%, grade 1 diastolic dysfunction, bilateral valve stenosis, mild mitral valve stenosis moderate tricuspid valve regurg, severe pulmonary hypertension with RVSP of 71 mmHg. (6) Acidosis: Code(s): E87.2 - Acidosis Status: Acute Assessment and Plan: Mixed metabolic and respiratory acidosis Will tolerate permissive hypercapnia continue bicarb for metabolic acidosis DC normal saline to minimize hyperchloremia (7) Sepsis: Qualifiers: Sepsis type: sepsis due to unspecified organism Sepsis acute organ dysfunction status: with acute organ dysfunction Severe sepsis acute organ dysfunction type: acute renal failure Acute renal failure type: unspecified Severe sepsis shock status: without septic shock Qualified Code(s): A41.9 - Sepsis, unspecified organism; R65.20 - Severe sepsis without septic shock; N17.9 - Acute kidney failure, unspecified Code(s): A41.9 - Sepsis, unspecified organism Status: Acute Assessment and Plan: Patient was started on broad-spectrum antibiotics on presentation for possible secondary bacterial pneumonia She was started on vancomycin and Zosyn on presentation Her UA suggests UTI although urine culture came back negative Blood cultures are negative for now 04/05 antibiotic
--- NOTE | 2021-04-06 10:52 | PCDIET ---
Nutrition Follow-Up Complete: Nutrition Diagnosis: Inadequate oral intake related to oral intubation as evidenced by need for tube feedings. Nutrition Goal: Patient to tolerate tube feedings at goal rate. Goal in progress. Patient with fair tolerance to Nepro at 30mL/hr with 30mL water flush every 4 hours. Residuals have been 330mL and below. Last recorded weight is 68.1 kg which is increased from last review. +I/O. Bowel Motility: No documented BM. If medically appropriate, could consider adding medication to promote BM. Labs Reviewed: WBC (10.6), RBC (2.52), Hgb (7.4), Hct (23.8), Glu (132), BUN (81), Cr (4.4), Alb (2.6), Jonathan Ca (8.72), PO4 (6.2) Meds Noted: Sodium Bicarbonate, Carafate, Calcium Gluconate, Albuterol, Olumiant, Pulmicort, Bumex, Cefepime, Decadron, Fentanyl, Lantus, Atrovent, Reglan, Lopressor, Versed, Protonix, Renvela Additional Notes: No documented skin breakdown. Will continue to monitor with same goal. Nutrition Monitoring and Evaluation: Follow up every Sunday/Sunday.
[2021-04-06] MEDS: FENTANYL 2,500MCG/NS250ML(*CRX 2,500 MCG/250 ML BAG 15 MCG IV CONT (11:20)
[2021-04-06] MEDS: EPOETIN ALFA 10,000 UNITS/ML VIAL 10000 UNITS SUB-Q (12:01)
[2021-04-06 12:33] LABS: Glucose Point of Care 107 mg/dl (65-105)
[2021-04-06] MEDS: IPRATROPIUM BR 0.02% INH SOLN 0.5 MG/2.5 ML VIAL INHALATION ×2 (14:25→21:20)
[2021-04-06] MEDS: BUDESONIDE RESPULE NEB 0.5 MG/2 ML AMP INHALATION ×2 (14:25→21:20)
[2021-04-06] MEDS: ALBUTEROL SULFATE NEB 2.5 MG/0.5 ML INH INHALATION ×2 (14:25→21:20)
[2021-04-06 17:17] LABS: Glucose Point of Care 157 mg/dl (65-105)
[2021-04-06 20:51] LABS: Glucose Point of Care 114 mg/dl (65-105)
[2021-04-06] MEDS: METOPROLOL TARTRATE INJ 5 MG/5 ML VIAL IV PUSH (21:38)
--- NOTE | 2021-04-06 22:20 | PC.NURSE ---
Spoke with Dr. Martins regarding elevated blood pressures post Lopressor IV. Give 5mg Versed IV, then if no relief, may give hydralazine.
[2021-04-06] MEDS: MIDAZOLAM HCL (*CRX) 2 MG/2 ML VIAL 5 MG IV PUSH (22:35)
[2021-04-06] MEDS: hydrALAZINE HCL 20 MG/ML VIAL 10 MG IV PUSH (23:28)
[2021-04-06] MEDS: FENTANYL 2,500MCG/NS250ML(*CRX 2,500 MCG/250 ML BAG 20 MCG IV CONT (23:47)
[2021-04-06] MEDS: MIDAZOLAM 100MG/NS 100ML(*CRX) 100 MG/100 ML BAG 6 MG IV CONT (23:47)
[2021-04-06 23:55] LABS: Glucose Point of Care 127 mg/dl (65-105)
[2021-04-07] VITALS (40 sets, daily range): BP systolic 142–163; BP diastolic 64–74; PULSE 78–112; RESP 28; TEMP 35.5–36.6; O2SAT 91–98
[2021-04-07] MEDS: IPRATROPIUM BR 0.02% INH SOLN 0.5 MG/2.5 ML VIAL INHALATION ×4 (02:55→19:56)
[2021-04-07] MEDS: ALBUTEROL SULFATE NEB 2.5 MG/0.5 ML INH INHALATION ×4 (02:55→19:56)
[2021-04-07 04:02] LABS: Basophils Percent Auto 0.2 % (0.2-1.2); Hematocrit 23.7 % (37.0-47.0); Hemoglobin 7.6 g/dL (12.0-15.0); Immature Granulocyte Absolute 0.47 K/mm3 (0.00-0.031); Immature Granulocyte Percent A 3.8 % (0-0.5); Lymphocytes Absolute Auto 0.33 K/mm3 (0.9-3.2); Lymphocytes Percent Auto 2.7 % (18.3-44.2); Mean Corpuscular HGB Conc 32.1 g/dl (32-36); Mean Corpuscular Hemoglobin 29.2 pg (26-34); Mean Corpuscular Volume 91.2 fl (80-100); Mean Platelet Volume 11.2 fl (7.4-10.4); Monocytes Absolute Auto 0.6 K/mm3 (0.1-0.6); Neutrophils Absolute Auto 10.9 K/mm3 (1.3-6.7); Neutrophils Percent Auto 88.3 % (45.5-73.1); Nucleated Red Blood Cells Absolute Auto 0.1 K/mm3 (0.0-0.012); Nucleated Red Blood Cells Perc 0.4 % (0.0-0.2); Platelet Count Result 161 k/mm3 (150-375); Red Cell Distribution Width 15.8 % (11.5-14.5); White Blood Count 12.4 K/mm3 (4.5-10.0)
[2021-04-07 04:19] LABS: Alanine Aminotransferase 26 U/L (4-35); Albumin Level 2.6 g/dL (3.5-5.1); Alkaline Phosphatase 63 U/L (38-126); Anion Gap 12 mmol/L (8-16); Aspartate Amino Transferase 43 U/L (14-36); Bilirubin,Total 0.5 mg/dL (0.2-1.3); Blood Urea Nitrogen 87 mg/dL (7-17); Calcium 8.1 mg/dL (8.4-10.2); Carbon Dioxide 20 mmol/L (22-30); Chloride 106 mmol/L (98-107); Estimated CRCL calculation 8 ml/min; Estimated Glomerular Filt Rate 11; Glucose 113 mg/dL (65-110); Magnesium 2.1 mg/dL (1.6-2.3); Phosphorus 5.8 mg/dL (2.5-4.5); Potassium 4.4 mmol/L (3.4-5.0); Sodium 138 mmol/L (137-145)
[2021-04-07 05:04] LABS: Base Excess ABG -7.4 mEq/l (+/-2.0); Carboxyhemoglobin 0.3 % THb (0-2.0); Fractional Inspired Oxygen 65 %; HCO3 ABG 18.6 mEq/l (22.0-26.0); Methemoglobin ABG 0.4 %THb (0-1.5); Oxygen Content ABG 10.7 %vol (16.0-22.0); Oxyhemoglobin 85.4 % THb (90.0-100.0); PCO2 ABG 39.7 mmHg (35.0-45.0); PO2 ABG 57.3 mmHg (80.0-100.0); PO2 FiO2 Ratio Arterial Blood 0.88 %; Reduced Hemoglobin 13.9 %THb (0-5.0); Total Hemoglobin 8.9 g/dL (12.0-18.0)
[2021-04-07 05:05] LABS: pH ABG 7.289 (7.350-7.450)
[2021-04-07 05:06] LABS: Device VENTILATOR; Oxygen Saturation ABG 86.7 % (95.0-100.0); Site Drawn RIGHT RADIAL
[2021-04-07 05:07] LABS: Arterial Blood Gas PEEP 10 cmH2O; Arterial Blood Gas Tidal Volume 290 ml; Arterial Blood Gas Vent Mode CMV; Arterial Blood Gas Ventilator rate 28 /MIN
[2021-04-07] MEDS: HEPARIN SODIUM 5,000 UNITS/ML VIAL 5000 UNITS SUB-Q ×2 (05:30→17:17)
[2021-04-07] MEDS: SUCRALFATE SUSP 100 MG/ML 10 ML UDC 1000 MG FEED TUBE ×4 (05:31→23:42)
[2021-04-07] MEDS: METOCLOPRAMIDE HCL INJ 10 MG/2 ML VIAL IV PUSH ×4 (05:31→23:42)
[2021-04-07] MEDS: CENTRAL LINE FLUSH 10 ML IV PUSH ×3 (05:31→20:22)
[2021-04-07] MEDS: BUDESONIDE RESPULE NEB 0.5 MG/2 ML AMP INHALATION ×2 (08:44→19:56)
[2021-04-07 08:47] LABS: Glucose Point of Care 124 mg/dl (65-105)
[2021-04-07] MEDS: BUMETANIDE INJ 1 MG/4 ML VIAL 2 MG IV PUSH ×2 (09:22→17:17)
[2021-04-07] MEDS: MINERAL OIL/WHITE PETROLATUM OINTMENT 1 APPLIC EACH EYE ×2 (09:22→20:04)
[2021-04-07] MEDS: SEVELAMER CARBONATE 800 MG TABLET PO ×3 (09:22→17:17)
[2021-04-07] MEDS: PANTOPRAZOLE SODIUM IV 40 MG VIAL IV PUSH (09:22)
--- NOTE | 2021-04-07 10:33 | PCDIET ---
Nutrition Follow-Up Complete: Nutrition Diagnosis: Inadequate oral intake related to oral intubation as evidenced by need for tube feedings. Nutrition Goal: Patient to tolerate tube feedings at goal rate. Goal in progress. Patient tolerating Nepro at 30mL/hr with residuals 300mL and below. Last recorded weight is 70.2 kg which is increased from last review. +I/O. Bowel Motility: No documented BM. If medically appropriate, would add medication to promote BM. Labs Reviewed: WBC (12.4), RBC (2.60), Hgb (7.6), Hct (23.7), Glu (124), BUN (87), Cr (4.7), Alb (2.6), Jonathan Ca (9.22), PO4 (5.8) Meds Noted: Atrovent, Reglan, Albuterol, Pulmicort, Fentanyl, Bumex, Cefepime, Nimbex, Decadron, Epogen, Lopressor, Versed, Protonix, Renvela Additional Notes: No documented skin breakdown. Will continue to monitor with same goal. Nutrition Monitoring and Evaluation: Follow up every Sunday/Sunday.
[2021-04-07] MEDS: CISATRACURIUM BESYLATE 200 MG in DEXTROSE 5% 80 ML IV CONT (12:27)
[2021-04-07] MEDS: FENTANYL 2,500MCG/NS250ML(*CRX 2,500 MCG/250 ML BAG 20 MCG IV CONT (12:29)
[2021-04-07 13:02] LABS: Glucose Point of Care 167 mg/dl (65-105)
--- NOTE | 2021-04-07 13:46 | PM.PNNEP ---
Progress Note: A&P Assessment and Plan (1) Acute renal failure with oliguria: Code(s): N17.9 - Acute kidney failure, unspecified; R34 - Anuria and oliguria Status: Acute Assessment and Plan: the patient has acute kidney injury. Her creatinine went from 2.4-3.1. It is unclear what her baseline is but she probably has chronic kidney disease because on ultrasound her kidneys have atrophy. Her urinalysis is bland. most likely COVID related ATN. Gradually worsening BUN and creatinine. So far her potassium has been okay. Oxygen requirements are slowly rising as well. I talked with Dr. Martins who has talked with the son and she now is a DNR. She will not get dialysis. She is not yet comfort measures so. (2) Metabolic acidosis: Code(s): E87.2 - Acidosis Status: Acute Assessment and Plan: The patient has acidosis. Most likely related to sepsis. The blood gas shows a mixed metabolic and respiratory acidosis. PH now 7.289. Her bicarbonate level is 20. Most likely this is uremic poisons causing the anion gap. The anion gap has dropped slowly. (3) Pneumonia due to severe acute respiratory syndrome coronavirus 2 (SARS-CoV-2): Code(s): U07.1 - COVID-19; J12.82 - Pneumonia due to coronavirus disease 2019 Status: Acute Assessment and Plan: The patient has hypoxia and is requiring ventilation sedation and paralytics maintain her oxygenation. She is on broad-spectrum antibiotics in case there is a bacterial component. She is on dexamethasone for the COVID component. (4) Chronic anemia: Code(s): D64.9 - Anemia, unspecified Status: Acute Assessment and Plan: She is on iron as an outpatient. The hemoglobin is stable. Getting Epogen (5) Rhabdomyolysis: Qualifiers: Rhabdomyolysis type: non-traumatic Qualified Code(s): M62.82 - Rhabdomyolysis Code(s): M62.82 - Rhabdomyolysis Status: Acute Assessment and Plan: The CPK is elevated but stable. (6) Thrombocytopenia: Code(s): D69.6 - Thrombocytopenia, unspecified Status: Acute Assessment and Plan: Platelet count is low. Most likely result of the COVID (7) Abnormal LFTs: Code(s): R94.5 - Abnormal results of liver function studies Status: Acute Assessment and Plan: AST is 65. This could be from the liver or could be from the muscle. Subjective Date/time seen: 04/07/21 13:46 Interval history: And he is still on the ventilator. FiO2 is at 60% On no pressors. In the prone position. Exam Narrative: WDWN female sedated and on paralytics on the ventilator in the ICU skin no rash head ncat lungs coarse bilaterally cor could not examine abd BS+ nontender and soft ext 1-2+ edema. Neuro sedated Objective Data Vital Signs Vital Signs: Vital Signs - 24 hr 04/06/21 14:00 04/06/21 14:25 04/06/21 14:26 Temperature 36.4 C Pulse Rate 83 88 90 Respiratory Rate 28 H 29 H Blood Pressure 156/71 H Pulse Oximetry 99 97 04/06/21 16:00 04/06/21 17:35 04/06/21 18:18 Temperature 36.3 C L Pulse Rate 82 85 85 Respiratory Rate 28 H Blood Pressure 167/79 H Pulse Oximetry 99 94 04/06/21 18:19 04/06/21 18:20 04/06/21 20:00 Temperature 36.4 C 36.6 C Pulse Rate 85 84 85 Respiratory Rate 28 H 28 H 28 H Blood Pressure 157/72 H 160/70 H Pulse Oximetry 96 91 04/06/21 21:00 04/06/21 21:20 04/06/21 21:25 Temperature Pulse Rate 89 88 89 Respiratory Rate 28 H 28 H Blood Pressure Pulse Oximetry 92 04/06/21 21:28 04/06/21 22:00 04/06/21 23:39 Temperature 36.6 C Pulse Rate 89 77 81 Respiratory Rate 28 H 28 H Blood Pressure 197/86 H Pulse Oximetry 90 98 04/06/21 23:47 04/06/21 23:48 04/07/21 00:00 Temperature 36.6 C Pulse Rate 83 83 82 Respiratory Rate 28 H 28 H 28 H Blood Pressure 144/65 H Pulse Oximetry 97 04/07/21 02:00 04/07/21 0
--- NOTE | 2021-04-07 13:47 | WPDINTPN ---
Progress Note: A&P Assessment and Plan (1) Acute respiratory failure: Qualifiers: Respiratory failure complication: hypoxia Qualified Code(s): J96.01 - Acute respiratory failure with hypoxia Code(s): J96.00 - Acute respiratory failure, unspecified whether with hypoxia or hypercapnia Status: Acute Assessment and Plan: Acute hypoxic respiratory failure secondary to COVID pneumonia -chest x-ray reviewed and shows persistent diffuse lung disease -advance ET tube by 3 cm -currently on 65% FiO2, and PEEP of 10, wean FiO2 if possible -ABG reviewed. Permissive hypercapnia -continue sedation with fentanyl Versed infusion and neuromuscular blockade with Nimbex infusion -continue bronchodilators and Pulmicort Pulmicort -continue daily prone ventilation for 18 hours as tolerated (2) Pneumonia due to severe acute respiratory syndrome coronavirus 2 (SARS-CoV-2): Code(s): U07.1 - COVID-19; J12.82 - Pneumonia due to coronavirus disease 2018 Status: Acute Assessment and Plan: SARS-CoV-2 PCR positive at the outside hospital in [facility] -monitor inflammatory markers -continue dexamethasone x10 days (initiated 04/02/2021) - Patient was started on Baricitinib on 04/02/2021- held 04/06 due to low GFR -patient is not a candidate for remdesivir due to acute kidney injury (3) ALIX (acute kidney injury): Code(s): N17.9 - Acute kidney failure, unspecified Status: Acute Assessment and Plan: Patient with elevated creatinine on admission at the outside hospital unknown if patient has any chronic component -elevated phosphorus levels suggest chronic kidney disease -patient was given cautious amount IV fluids without any significant improvement. off IV fluids at this time -renal ultrasound with mild bilateral renal atrophy, echogenic kidneys, medical renal disease, no hydronephrosis -CK levels trending down -nephrology following, plan to continue Bumex, - I was able to speak to patient's son Shahab perez today by phone and he told me that patient would not want hemodialysis. Considering her age and current condition patient's son does not think that dialysis will make any difference to her outcome and does not want to put her through that. - Case discussed with Dr. Muñoz (4) DVT prophylaxis: Code(s): Z29.9 - Encounter for prophylactic measures, unspecified Status: Acute Assessment and Plan: DVT prophylaxis: she is on heparin SQ Stress ulcer prophylaxis: Protonix (5) Elevated troponin: Code(s): R77.8 - Other specified abnormalities of plasma proteins Status: Acute Assessment and Plan: Likely related to type 2 infarct related to COVID pneumonia -echocardiogram 04/24/2021: Shows EF of 65-70%, grade 1 diastolic dysfunction, bilateral valve stenosis, mild mitral valve stenosis moderate tricuspid valve regurg, severe pulmonary hypertension with RVSP of 71 mmHg. (6) Acidosis: Code(s): E87.2 - Acidosis Status: Acute Assessment and Plan: Mixed metabolic and respiratory acidosis Will tolerate permissive hypercapnia continue bicarb for metabolic acidosis DC normal saline to minimize hyperchloremia (7) Sepsis: Qualifiers: Sepsis type: sepsis due to unspecified organism Sepsis acute organ dysfunction status: with acute organ dysfunction Severe sepsis acute organ dysfunction type: acute renal failure Acute renal failure type: unspecified Severe sepsis shock status: without septic shock Qualified Code(s): A41.9 - Sepsis, unspecified organism; R65.20 - Severe sepsis without septic shock; N17.9 - Acute kidney failure, unspecified Code(s): A41.9 - Sepsis, unspecified organism Status: Acute Assessment and Plan: Patient was started on broad-spectrum antibiotics on presentation for possible secondary bacterial pneumonia She was started on vancomycin and Zosyn on presentation Her UA suggests UTI although uri
[2021-04-07] MEDS: MIDAZOLAM 100MG/NS 100ML(*CRX) 100 MG/100 ML BAG 6 MG IV CONT (17:02)
[2021-04-07 17:11] LABS: Glucose Point of Care 210 mg/dl (65-105)
[2021-04-07] MEDS: INSULIN ASPART (*BKC) 100 UNITS/ML SUB-Q ×2 (17:16→20:05)
[2021-04-07 20:30] LABS: Glucose Point of Care 203 mg/dl (65-105)
[2021-04-08] VITALS (35 sets, daily range): BP systolic 109–141; BP diastolic 55–74; PULSE 82–108; RESP 18–30; TEMP 36–37.1; O2SAT 83–100
[2021-04-08] MEDS: FENTANYL 2,500MCG/NS250ML(*CRX 2,500 MCG/250 ML BAG 20 MCG IV CONT ×2 (00:07→12:40)
[2021-04-08 00:46] LABS: Glucose Point of Care 150 mg/dl (65-105)
[2021-04-08] MEDS: IPRATROPIUM BR 0.02% INH SOLN 0.5 MG/2.5 ML VIAL INHALATION ×4 (01:49→20:26)
[2021-04-08] MEDS: ALBUTEROL SULFATE NEB 2.5 MG/0.5 ML INH INHALATION ×4 (01:49→20:26)
[2021-04-08 04:08] LABS: Hematocrit 23.9 % (37.0-47.0); Hemoglobin 7.4 g/dL (12.0-15.0); Mean Corpuscular Hemoglobin 29.5 pg (26-34); Mean Corpuscular Volume 95.2 fl (80-100); Mean Platelet Volume 10.9 fl (7.4-10.4); Platelet Count Result 184 k/mm3 (150-375); Red Blood Count 2.51 M/mm3 (4.2-5.4); Red Cell Distribution Width 15.9 % (11.5-14.5); White Blood Count 13.4 K/mm3 (4.5-10.0)
[2021-04-08 04:26] LABS: Alanine Aminotransferase 24 U/L (4-35); Aspartate Amino Transferase 37 U/L (14-36); Estimated CRCL calculation 7 ml/min; Estimated Glomerular Filt Rate 10
[2021-04-08 04:50] LABS: Glucose Point of Care 134 mg/dl (65-105)
[2021-04-08] MEDS: HEPARIN SODIUM 5,000 UNITS/ML VIAL 5000 UNITS SUB-Q ×2 (05:20→17:20)
[2021-04-08] MEDS: METOCLOPRAMIDE HCL INJ 10 MG/2 ML VIAL IV PUSH ×3 (05:20→17:20)
[2021-04-08] MEDS: SUCRALFATE SUSP 100 MG/ML 10 ML UDC 1000 MG FEED TUBE ×3 (05:20→17:20)
[2021-04-08] MEDS: CENTRAL LINE FLUSH 10 ML IV PUSH ×3 (05:21→21:49)
[2021-04-08 05:26] LABS: Atypical Lymphocytes Present; Band Neutrophils Percent 8 % (0-6); Lymphocytes Absolute Manual 0.13 K/mm3 (1.1-4.5); Neutrophils Percent Manual 91 % (46-73); Platelet Estimate Adequate (Adequate); Total Cells Counted 100
[2021-04-08 05:27] LABS: Crenated RBC 2+ (NORMAL)
[2021-04-08 05:28] LABS: Anisocytosis 2+ (NORMAL)
[2021-04-08 05:46] LABS: Alveolar/Arterial O2 Gradient 441.2 mmHg; Base Excess ABG -6.4 mEq/l (+/-2.0); Carboxyhemoglobin 0.3 % THb (0-2.0); Fractional Inspired Oxygen 80 %; HCO3 ABG 21.3 mEq/l (22.0-26.0); Methemoglobin ABG 0.6 %THb (0-1.5); Oxygen Content ABG 11.2 %vol (16.0-22.0); Oxygen Saturation ABG 90.9 % (95.0-100.0); Oxyhemoglobin 90.6 % THb (90.0-100.0); PCO2 ABG 54.3 mmHg (35.0-45.0); PO2 ABG 72.2 mmHg (80.0-100.0); Reduced Hemoglobin 8.5 %THb (0-5.0); Total Hemoglobin 8.7 g/dL (12.0-18.0)
[2021-04-08 05:47] LABS: pH ABG 7.211 (7.350-7.450)
[2021-04-08 05:48] LABS: Device VENTILATOR; Modified Allen's Test Pass; Site Drawn LEFT RADIAL
[2021-04-08 05:49] LABS: Arterial Blood Gas PEEP 10 cmH2O; Arterial Blood Gas Tidal Volume 290 ml; Arterial Blood Gas Vent Mode CMV; Arterial Blood Gas Ventilator rate 28 /MIN
[2021-04-08] MEDS: BUDESONIDE RESPULE NEB 0.5 MG/2 ML AMP INHALATION ×2 (07:56→20:26)
--- NOTE | 2021-04-08 07:57 | PM.IMPN ---
Progress Note: A&P Assessment and Plan (1) ARDS (adult respiratory distress syndrome): Code(s): J80 - Acute respiratory distress syndrome Status: Acute (2) Sepsis: Qualifiers: Sepsis type: sepsis due to unspecified organism Sepsis acute organ dysfunction status: with acute organ dysfunction Severe sepsis acute organ dysfunction type: acute renal failure Acute renal failure type: unspecified Severe sepsis shock status: without septic shock Qualified Code(s): A41.9 - Sepsis, unspecified organism; R65.20 - Severe sepsis without septic shock; N17.9 - Acute kidney failure, unspecified Code(s): A41.9 - Sepsis, unspecified organism Status: Acute (3) Acute renal failure with oliguria: Code(s): N17.9 - Acute kidney failure, unspecified; R34 - Anuria and oliguria Status: Acute (4) Pneumonia due to severe acute respiratory syndrome coronavirus 2 (SARS-CoV-2): Code(s): U07.1 - COVID-19; J12.82 - Pneumonia due to coronavirus disease 2019 Status: Acute Assessment and Plan: Patient is on broad-spectrum antibiotics for superimposed bacterial pneumonia Continue Baricitinib Supportive care (5) Metabolic acidosis: Code(s): E87.2 - Acidosis Status: Acute (6) Elevated troponin: Code(s): R77.8 - Other specified abnormalities of plasma proteins Status: Acute (7) Diastolic heart failure: Qualifiers: Heart failure chronicity: chronic Qualified Code(s): I50.32 - Chronic diastolic (congestive) heart failure Code(s): I50.30 - Unspecified diastolic (congestive) heart failure Status: Acute (8) Hypotension: Qualifiers: Hypotension type: hypotension due to hypovolemia Qualified Code(s): I95.89 - Other hypotension; E86.1 - Hypovolemia Code(s): I95.9 - Hypotension, unspecified Status: Acute (9) Bradycardia: Code(s): R00.1 - Bradycardia, unspecified Status: Acute (10) Thrombocytopenia: Code(s): D69.6 - Thrombocytopenia, unspecified Status: Acute (11) Hyperphosphatemia: Code(s): E83.39 - Other disorders of phosphorus metabolism Status: Acute (12) Elevated d-dimer: Code(s): R79.89 - Other specified abnormal findings of blood chemistry Status: Acute (13) Chronic anemia: Code(s): D64.9 - Anemia, unspecified Status: Acute (14) Leukocytosis: Qualifiers: Leukocytosis type: unspecified Qualified Code(s): D72.829 - Elevated white blood cell count, unspecified Code(s): D72.829 - Elevated white blood cell count, unspecified Status: Acute (15) Rhabdomyolysis: Qualifiers: Rhabdomyolysis type: non-traumatic Qualified Code(s): M62.82 - Rhabdomyolysis Code(s): M62.82 - Rhabdomyolysis Status: Acute (16) Abnormal LFTs: Code(s): R94.5 - Abnormal results of liver function studies Status: Acute Assessment and Plan: Slight elevation of AST and ALT Continue to monitor (17) ALIX (acute kidney injury): Code(s): N17.9 - Acute kidney failure, unspecified Status: Acute Assessment and Plan: Likely secondary to pre renal azotemia however no prior lab value to compare Continue to monitor BUN and creatinine Avoid nephrotoxins Love in place Strict input and output Additional Plan 1. COVID pneumonia and acute respiratory failure: -patient continues to being intubated -Today is sedated and paralyzed as -daily D-dimer, ferritin, CRP 4. Oliguric renal failure: -continuing to have declining urine output -creatinine uptrending -Nephrology on board - Discussion was made with the son. Will not proceed with any additional intervention. Subjective Date/time seen: 04/08/21 07:57 S: Patient is examined at the bedside; she is intubated on mechanical ventilation. FiO2 is at 60%. Review of Systems Review of Systems: ROS unobtainable: Yes unobtainable due to endotracheal
[2021-04-08] MEDS: SODIUM BICARBONATE TAB 650 MG TABLET FEED TUBE ×3 (08:44→17:20)
[2021-04-08] MEDS: MINERAL OIL/WHITE PETROLATUM OINTMENT 1 APPLIC EACH EYE ×2 (08:45→21:49)
[2021-04-08] MEDS: BUMETANIDE INJ 1 MG/4 ML VIAL 2 MG IV PUSH ×2 (08:45→17:19)
[2021-04-08] MEDS: SEVELAMER CARBONATE 800 MG TABLET PO ×3 (08:45→17:19)
[2021-04-08] MEDS: PANTOPRAZOLE SODIUM IV 40 MG VIAL IV PUSH (08:46)
[2021-04-08] MEDS: EUCERIN CREAM 120 GM JAR 1 APPLIC TOPICAL (08:46)
[2021-04-08 09:00] LABS: Glucose Point of Care 126 mg/dl (65-105)
[2021-04-08 09:00] LABS: Alanine Aminotransferase 21 U/L (4-35); Albumin Level 2.2 g/dL (3.5-5.1); Alkaline Phosphatase 57 U/L (38-126); Anion Gap 9 mmol/L (8-16); Aspartate Amino Transferase 37 U/L (14-36); Bilirubin,Total 0.3 mg/dL (0.2-1.3); Blood Urea Nitrogen 88 mg/dL (7-17); Calcium 7.6 mg/dL (8.4-10.2); Carbon Dioxide 21 mmol/L (22-30); Chloride 106 mmol/L (98-107); Estimated CRCL calculation 8 ml/min; Estimated Glomerular Filt Rate 11; Glucose 143 mg/dL (65-110); Potassium 4.3 mmol/L (3.4-5.0); Sodium 136 mmol/L (137-145)
[2021-04-08] MEDS: MIDAZOLAM 100MG/NS 100ML(*CRX) 100 MG/100 ML BAG 6 MG IV CONT (09:44)
--- NOTE | 2021-04-08 10:36 | WPDINTPN ---
Progress Note: A&P Assessment and Plan (1) Acute respiratory failure: Qualifiers: Respiratory failure complication: hypoxia Qualified Code(s): J96.01 - Acute respiratory failure with hypoxia Code(s): J96.00 - Acute respiratory failure, unspecified whether with hypoxia or hypercapnia Status: Acute Assessment and Plan: Acute hypoxic respiratory failure secondary to COVID pneumonia -chest x-ray reviewed and shows persistent diffuse lung disease -currently on 80% FiO2, and PEEP of 10 - increase PEEP to 12, increase respiratory rate to 30 -ABG reviewed. Permissive hypercapnia -continue sedation with fentanyl Versed infusion and neuromuscular blockade with Nimbex infusion -continue bronchodilators and Pulmicort Pulmicort -continue daily prone ventilation for 18 hours as tolerated (2) Pneumonia due to severe acute respiratory syndrome coronavirus 2 (SARS-CoV-2): Code(s): U07.1 - COVID-19; J12.82 - Pneumonia due to coronavirus disease 2018 Status: Acute Assessment and Plan: SARS-CoV-2 PCR positive at the outside hospital in [facility] -monitor inflammatory markers -continue dexamethasone x10 days (initiated 04/02/2021) - Patient was started on Baricitinib on 04/02/2021- held 04/06 due to low GFR -patient is not a candidate for remdesivir due to acute kidney injury (3) ALIX (acute kidney injury): Code(s): N17.9 - Acute kidney failure, unspecified Status: Acute Assessment and Plan: Patient with elevated creatinine on admission at the outside hospital unknown if patient has any chronic component -elevated phosphorus levels suggest chronic kidney disease -patient was given cautious amount IV fluids without any significant improvement. off IV fluids at this time -renal ultrasound with mild bilateral renal atrophy, echogenic kidneys, medical renal disease, no hydronephrosis -nephrology following, plan to continue Bumex, -04/07 I was able to speak to patient's son Shahab perez today by phone and he told me that patient would not want hemodialysis. Considering her age and current condition patient's son does not think that dialysis will make any difference to her outcome and does not want to put her through that. - Case discussed with Dr. Muñoz (4) DVT prophylaxis: Code(s): Z29.9 - Encounter for prophylactic measures, unspecified Status: Acute Assessment and Plan: DVT prophylaxis: she is on heparin SQ Stress ulcer prophylaxis: Protonix (5) Elevated troponin: Code(s): R77.8 - Other specified abnormalities of plasma proteins Status: Acute Assessment and Plan: Likely related to type 2 infarct related to COVID pneumonia -echocardiogram 04/24/2021: Shows EF of 65-70%, grade 1 diastolic dysfunction, bilateral valve stenosis, mild mitral valve stenosis moderate tricuspid valve regurg, severe pulmonary hypertension with RVSP of 71 mmHg. (6) Acidosis: Code(s): E87.2 - Acidosis Status: Acute Assessment and Plan: Mixed metabolic and respiratory acidosis Will tolerate permissive hypercapnia Continue bicarb for metabolic acidosis Off normal saline to minimize hyperchloremia (7) Sepsis: Qualifiers: Sepsis type: sepsis due to unspecified organism Sepsis acute organ dysfunction status: with acute organ dysfunction Severe sepsis acute organ dysfunction type: acute renal failure Acute renal failure type: unspecified Severe sepsis shock status: without septic shock Qualified Code(s): A41.9 - Sepsis, unspecified organism; R65.20 - Severe sepsis without septic shock; N17.9 - Acute kidney failure, unspecified Code(s): A41.9 - Sepsis, unspecified organism Status: Acute Assessment and Plan: Patient was started on broad-spectrum antibiotics on presentation for possible secondary bacterial pneumonia She was started on vancomycin and Zosyn on presentation Her UA suggests UTI although urine culture c
--- NOTE | 2021-04-08 10:59 | PCDIET ---
Nutrition Follow-Up Complete: Nutrition Diagnosis: Inadequate oral intake related to oral intubation as evidenced by need for tube feedings. Nutrition Goal: Patient to tolerate tube feedings at goal rate. Goal met. Patient tolerating Nepro at 30mL/hr with 30mL water flush every 4 hours. Last recorded weight is 72.3 kg which is increased from last review. +I/O. Bowel Motility: No documented BM. If medically appropriate, could consider medication to promote BM. Labs Reviewed: WBC (13.4), RBC (2.51), Hgb (7.4), Hct (23.9), Glu (143), BUN (88), Cr (4.80), Na (136), Alb (2.2), Jonathan Ca (9.04) Meds Noted: Albuterol, Pulmicort, Bumex, Cefepime, Nimbex, Decadron, Epogen, Fentanyl, Atrovent, Carafate, Reglan, Versed, Protonix, Renvela, Sodium Bicarbonate Additional Notes: No documented skin breakdown. Patient has been made DNR with possible withdrawal of care tomorrow, 04/09/21. Will continue to monitor with same goal if patient remains in house. Nutrition Monitoring and Evaluation: Follow up every Sunday/Sunday.
[2021-04-08] MEDS: EPOETIN ALFA 10,000 UNITS/ML VIAL 10000 UNITS SUB-Q (12:33)
[2021-04-08 13:03] LABS: Glucose Point of Care 120 mg/dl (65-105)
[2021-04-08 15:40] LABS: Chloride Rand Ur <20 mmol/L (32-290); Creatinine Random Urine 107 mg/dL (20-275)
[2021-04-08] MEDS: INSULIN ASPART (*BKC) 100 UNITS/ML SUB-Q (17:18)
[2021-04-08 17:41] LABS: Glucose Point of Care 207 mg/dl (65-105)
[2021-04-08] MEDS: CISATRACURIUM BESYLATE 200 MG in DEXTROSE 5% 80 ML IV CONT (17:42)
[2021-04-08 22:01] LABS: Glucose Point of Care 166 mg/dl (65-105)
--- NOTE | 2021-04-08 22:05 | PM.PNNEP ---
Progress Note: A&P Assessment and Plan (1) Acute renal failure with oliguria: Code(s): N17.9 - Acute kidney failure, unspecified; R34 - Anuria and oliguria Status: Acute Assessment and Plan: the patient has acute kidney injury. Her creatinine is on the rise. It is unclear what her baseline is but she probably has chronic kidney disease because on ultrasound her kidneys have atrophy. Her urinalysis is bland. most likely COVID related ATN. Gradually worsening BUN and creatinine. So far her potassium has been okay. Oxygen requirements are slowly rising as well. continue current tx. (2) Metabolic acidosis: Code(s): E87.2 - Acidosis Status: Acute Assessment and Plan: The patient has acidosis. Most likely related to sepsis. The blood gas shows a mixed metabolic and respiratory acidosis. PH now 7.211. Her bicarbonate level is 20. Most likely this is uremic poisons causing the anion gap. The anion gap has dropped slowly. (3) Pneumonia due to severe acute respiratory syndrome coronavirus 2 (SARS-CoV-2): Code(s): U07.1 - COVID-19; J12.82 - Pneumonia due to coronavirus disease 2019 Status: Acute Assessment and Plan: The patient has hypoxia and is requiring ventilation sedation and paralytics maintain her oxygenation. She is on broad-spectrum antibiotics in case there is a bacterial component. She is on dexamethasone for the COVID component. (4) Chronic anemia: Code(s): D64.9 - Anemia, unspecified Status: Acute Assessment and Plan: She is on iron as an outpatient. The hemoglobin is stable. Getting Epogen (5) Rhabdomyolysis: Qualifiers: Rhabdomyolysis type: non-traumatic Qualified Code(s): M62.82 - Rhabdomyolysis Code(s): M62.82 - Rhabdomyolysis Status: Acute Assessment and Plan: The CPK is elevated but stable. (6) Thrombocytopenia: Code(s): D69.6 - Thrombocytopenia, unspecified Status: Acute Assessment and Plan: Platelet count is low. Most likely result of the COVID (7) Abnormal LFTs: Code(s): R94.5 - Abnormal results of liver function studies Status: Acute Assessment and Plan: AST is 65. This could be from the liver or could be from the muscle. Subjective Date/time seen: 04/08/21 22:05 Interval history: And he is still on the ventilator. FiO2 is at 60% On no pressors. in the supine position Exam Narrative: WDWN female sedated and on paralytics on the ventilator in the ICU skin no rash or sq noduls head ncat lungs coarse bilaterally cor could not examine abd BS+ nontender and soft ext 1-2+ edema. Neuro sedated Objective Data Vital Signs Vital Signs: Vital Signs - 24 hr 04/07/21 22:30 04/07/21 22:52 04/08/21 00:00 Temperature 36.1 C L Pulse Rate 78 82 87 Respiratory Rate 28 H Blood Pressure 122/58 L Pulse Oximetry 98 98 89 L 04/08/21 00:07 04/08/21 01:50 04/08/21 01:56 Temperature Pulse Rate 87 86 89 Respiratory Rate 28 H 28 H 28 H Blood Pressure Pulse Oximetry 95 04/08/21 02:00 04/08/21 04:00 04/08/21 05:15 Temperature 36.5 C 37.1 C Pulse Rate 89 98 98 Respiratory Rate 28 H 28 H Blood Pressure 123/60 115/55 L Pulse Oximetry 96 97 94 04/08/21 06:00 04/08/21 06:01 04/08/21 08:00 Temperature 36.9 C 36.6 C Pulse Rate 92 93 85 Respiratory Rate 28 H 30 H Blood Pressure 125/65 131/67 Pulse Oximetry 95 97 04/08/21 08:05 04/08/21 08:07 04/08/21 09:40 Temperature Pulse Rate 98 83 84 Respiratory Rate 22 H Blood Pressure Pulse Oximetry 90 04/08/21 09:44 04/08/21 10:00 04/08/21 11:20 Temperature Pulse Rate 84 95 83 Respiratory Rate 30 H 30 H Blood Pressure 135/74 Pulse Oximetry 97 96 04/08/21 12:00 04/08/21 12:37 04/08/21 12:40 Temperature 36.1 C L Pulse Rate 87 88 88 Respiratory Rate 30 H 30 H 30 H Blood Pressure 133/63
[2021-04-09] VITALS (14 sets, daily range): BP systolic 103–153; BP diastolic 54–73; PULSE 82–102; RESP 25–30; TEMP 36.1–37.1; O2SAT 84–100
[2021-04-09] MEDS: METOCLOPRAMIDE HCL INJ 10 MG/2 ML VIAL IV PUSH ×2 (00:54→05:06)
[2021-04-09] MEDS: FENTANYL 2,500MCG/NS250ML(*CRX 2,500 MCG/250 ML BAG 20 MCG IV CONT (00:54)
[2021-04-09] MEDS: SUCRALFATE SUSP 100 MG/ML 10 ML UDC 1000 MG FEED TUBE ×2 (00:54→05:06)
[2021-04-09 01:21] LABS: Glucose Point of Care 140 mg/dl (65-105)
[2021-04-09] MEDS: IPRATROPIUM BR 0.02% INH SOLN 0.5 MG/2.5 ML VIAL INHALATION (01:50)
[2021-04-09] MEDS: ALBUTEROL SULFATE NEB 2.5 MG/0.5 ML INH INHALATION (01:50)
[2021-04-09] MEDS: HEPARIN SODIUM 5,000 UNITS/ML VIAL 5000 UNITS SUB-Q (05:06)
[2021-04-09] MEDS: CENTRAL LINE FLUSH 10 ML IV PUSH (05:06)
[2021-04-09] MEDS: MIDAZOLAM 100MG/NS 100ML(*CRX) 100 MG/100 ML BAG 6 MG IV CONT (05:10)
[2021-04-09 05:39] LABS: Basophils Percent Auto 0.1 % (0.2-1.2); Immature Granulocyte Percent A 6.3 % (0-0.5); Lymphocytes Absolute Auto 0.26 K/mm3 (0.9-3.2); Lymphocytes Percent Auto 2.3 % (18.3-44.2); Mean Corpuscular HGB Conc 31.1 g/dl (32-36); Mean Corpuscular Hemoglobin 29.1 pg (26-34); Mean Corpuscular Volume 93.7 fl (80-100); Mean Platelet Volume 10.8 fl (7.4-10.4); Monocytes Absolute Auto 0.3 K/mm3 (0.1-0.6); Monocytes Percent Auto 2.3 % (2.6-8.5); Neutrophils Absolute Auto 9.9 K/mm3 (1.3-6.7); Nucleated Red Blood Cells Absolute Auto 0.1 K/mm3 (0.0-0.012); Nucleated Red Blood Cells Perc 0.6 % (0.0-0.2); Platelet Count Result 164 k/mm3 (150-375); Red Blood Count 2.23 M/mm3 (4.2-5.4); Red Cell Distribution Width 15.9 % (11.5-14.5); White Blood Count 11.1 K/mm3 (4.5-10.0)
[2021-04-09 06:04] LABS: Alanine Aminotransferase 20 U/L (4-35); Albumin Level 2.4 g/dL (3.5-5.1); Alkaline Phosphatase 64 U/L (38-126); Anion Gap 9 mmol/L (8-16); Aspartate Amino Transferase 30 U/L (14-36); Bilirubin,Total 0.2 mg/dL (0.2-1.3); Blood Urea Nitrogen 102 mg/dL (7-17); Calcium 8.2 mg/dL (8.4-10.2); Carbon Dioxide 22 mmol/L (22-30); Chloride 105 mmol/L (98-107); Estimated CRCL calculation 6 ml/min; Estimated Glomerular Filt Rate 9; Glucose 132 mg/dL (65-110); Magnesium 2.5 mg/dL (1.6-2.3); Potassium 4.6 mmol/L (3.4-5.0); Sodium 136 mmol/L (137-145)
[2021-04-09 06:19] LABS: Carboxyhemoglobin 0.3 % THb (0-2.0); Fractional Inspired Oxygen 75 %; HCO3 ABG 19.3 mEq/l (22.0-26.0); Methemoglobin ABG 0.4 %THb (0-1.5); Oxygen Content ABG 10.3 %vol (16.0-22.0); Oxygen Saturation ABG 94.3 % (95.0-100.0); Oxyhemoglobin 93.1 % THb (90.0-100.0); PCO2 ABG 36.9 mmHg (35.0-45.0); PO2 ABG 74.6 mmHg (80.0-100.0); PO2 FiO2 Ratio Arterial Blood 0.99 %; Reduced Hemoglobin 6.2 %THb (0-5.0); pH ABG 7.336 (7.350-7.450)
[2021-04-09 06:22] LABS: Device VENTILATOR; Modified Allen's Test Unable to perform; Site Drawn RIGHT RADIAL; Total Hemoglobin 7.8 g/dL (12.0-18.0)
[2021-04-09 06:23] LABS: Arterial Blood Gas PEEP 12 cmH2O; Arterial Blood Gas Tidal Volume 290 ml; Arterial Blood Gas Vent Mode CMV; Arterial Blood Gas Ventilator rate 30 /MIN
[2021-04-09 06:30] LABS: Glucose Point of Care 125 mg/dl (65-105)
[2021-04-09 07:25] LABS: Hematocrit 20.9 % (37.0-47.0); Hemoglobin 6.5 g/dL (12.0-15.0)
[2021-04-09 07:28] LABS: Acanthocytes 2+ (NORMAL); Platelet Estimate Adequate (Adequate)
--- NOTE | 2021-04-09 07:43 | PM.IMPN ---
Progress Note: A&P Assessment and Plan (1) ARDS (adult respiratory distress syndrome): Code(s): J80 - Acute respiratory distress syndrome Status: Acute Assessment and Plan: per family wishes, the team proceeded with terminal extubation and comfort care. (2) Sepsis: Qualifiers: Acute renal failure type: unspecified Sepsis acute organ dysfunction status: with acute organ dysfunction Sepsis type: sepsis due to unspecified organism Severe sepsis acute organ dysfunction type: acute renal failure Severe sepsis shock status: without septic shock Qualified Code(s): A41.9 - Sepsis, unspecified organism; R65.20 - Severe sepsis without septic shock; N17.9 - Acute kidney failure, unspecified Code(s): A41.9 - Sepsis, unspecified organism Status: Acute (3) Acute renal failure with oliguria: Code(s): N17.9 - Acute kidney failure, unspecified; R34 - Anuria and oliguria Status: Acute (4) Pneumonia due to severe acute respiratory syndrome coronavirus 2 (SARS-CoV-2): Code(s): U07.1 - COVID-19; J12.82 - Pneumonia due to coronavirus disease 2019 Status: Acute Assessment and Plan: Patient is on broad-spectrum antibiotics for superimposed bacterial pneumonia Continue Baricitinib Supportive care (5) Metabolic acidosis: Code(s): E87.2 - Acidosis Status: Acute (6) Elevated troponin: Code(s): R77.8 - Other specified abnormalities of plasma proteins Status: Acute (7) Diastolic heart failure: Qualifiers: Heart failure chronicity: chronic Qualified Code(s): I50.32 - Chronic diastolic (congestive) heart failure Code(s): I50.30 - Unspecified diastolic (congestive) heart failure Status: Acute (8) Hypotension: Qualifiers: Hypotension type: hypotension due to hypovolemia Qualified Code(s): I95.89 - Other hypotension; E86.1 - Hypovolemia Code(s): I95.9 - Hypotension, unspecified Status: Acute (9) Bradycardia: Code(s): R00.1 - Bradycardia, unspecified Status: Acute (10) Thrombocytopenia: Code(s): D69.6 - Thrombocytopenia, unspecified Status: Acute (11) Hyperphosphatemia: Code(s): E83.39 - Other disorders of phosphorus metabolism Status: Acute (12) Elevated d-dimer: Code(s): R79.89 - Other specified abnormal findings of blood chemistry Status: Acute (13) Chronic anemia: Code(s): D64.9 - Anemia, unspecified Status: Acute (14) Leukocytosis: Qualifiers: Leukocytosis type: unspecified Qualified Code(s): D72.829 - Elevated white blood cell count, unspecified Code(s): D72.829 - Elevated white blood cell count, unspecified Status: Acute (15) Rhabdomyolysis: Qualifiers: Rhabdomyolysis type: non-traumatic Qualified Code(s): M62.82 - Rhabdomyolysis Code(s): M62.82 - Rhabdomyolysis Status: Acute (16) Abnormal LFTs: Code(s): R94.5 - Abnormal results of liver function studies Status: Acute Assessment and Plan: Slight elevation of AST and ALT Continue to monitor (17) ALIX (acute kidney injury): Code(s): N17.9 - Acute kidney failure, unspecified Status: Acute Assessment and Plan: Likely secondary to pre renal azotemia however no prior lab value to compare Continue to monitor BUN and creatinine Avoid nephrotoxins Love in place Strict input and output Additional Plan 1. COVID pneumonia and acute respiratory failure: -patient continues to being intubated -Today is sedated and paralyzed as -daily D-dimer, ferritin, CRP 4. Oliguric renal failure: -continuing to have declining urine output -creatinine uptrending -Nephrology on board - Discussion was made with the son. Will not proceed with any additional intervention. Subjective Date/time seen: 04/09/21 07:43 S: Patient was examined at the bedside. She is intubated on mechanical ventilation.
--- NOTE | 2021-04-09 09:05 | WPDINTPN ---
Progress Note: A&P Assessment and Plan (1) Acute respiratory failure: Qualifiers: Respiratory failure complication: hypoxia Qualified Code(s): J96.01 - Acute respiratory failure with hypoxia Code(s): J96.00 - Acute respiratory failure, unspecified whether with hypoxia or hypercapnia Status: Acute Assessment and Plan: Acute hypoxic respiratory failure secondary to COVID pneumonia -chest x-ray reviewed and shows worsening diffuse lung disease -advance ET tube by 2 cm -currently on 60% FiO2, and PEEP of 12 -ABG reviewed. Permissive hypercapnia -continue sedation with fentanyl Versed infusion and neuromuscular blockade with Nimbex infusion -continue bronchodilators and Pulmicort Pulmicort -continue daily prone ventilation for 18 hours as tolerated (2) Pneumonia due to severe acute respiratory syndrome coronavirus 2 (SARS-CoV-2): Code(s): U07.1 - COVID-19; J12.82 - Pneumonia due to coronavirus disease 2018 Status: Acute Assessment and Plan: SARS-CoV-2 PCR positive at the outside hospital in [facility] -monitor inflammatory markers -continue dexamethasone x10 days (initiated 04/02/2021) - Patient was started on Baricitinib on 04/02/2021- held 04/06 due to low GFR -patient is not a candidate for remdesivir due to acute kidney injury (3) ALIX (acute kidney injury): Code(s): N17.9 - Acute kidney failure, unspecified Status: Acute Assessment and Plan: Patient with elevated creatinine on admission at the outside hospital unknown if patient has any chronic component -elevated phosphorus levels suggest chronic kidney disease -patient was given cautious amount IV fluids without any significant improvement. off IV fluids at this time -renal ultrasound with mild bilateral renal atrophy, echogenic kidneys, medical renal disease, no hydronephrosis -nephrology following, plan to continue Bumex, -04/07 I was able to speak to patient's son Shahab perez today by phone and he told me that patient would not want hemodialysis. Considering her age and current condition patient's son does not think that dialysis will make any difference to her outcome and does not want to put her through that. (4) DVT prophylaxis: Code(s): Z29.9 - Encounter for prophylactic measures, unspecified Status: Acute Assessment and Plan: DVT prophylaxis: she is on heparin SQ Stress ulcer prophylaxis: Protonix (5) Elevated troponin: Code(s): R77.8 - Other specified abnormalities of plasma proteins Status: Acute Assessment and Plan: Likely related to type 2 infarct related to COVID pneumonia -echocardiogram 04/24/2021: Shows EF of 65-70%, grade 1 diastolic dysfunction, bilateral valve stenosis, mild mitral valve stenosis moderate tricuspid valve regurg, severe pulmonary hypertension with RVSP of 71 mmHg. (6) Acidosis: Code(s): E87.2 - Acidosis Status: Acute Assessment and Plan: Mixed metabolic and respiratory acidosis Will tolerate permissive hypercapnia Continue bicarb for metabolic acidosis Off normal saline to minimize hyperchloremia (7) Sepsis: Qualifiers: Sepsis type: sepsis due to unspecified organism Sepsis acute organ dysfunction status: with acute organ dysfunction Severe sepsis acute organ dysfunction type: acute renal failure Acute renal failure type: unspecified Severe sepsis shock status: without septic shock Qualified Code(s): A41.9 - Sepsis, unspecified organism; R65.20 - Severe sepsis without septic shock; N17.9 - Acute kidney failure, unspecified Code(s): A41.9 - Sepsis, unspecified organism Status: Acute Assessment and Plan: Patient was started on broad-spectrum antibiotics on presentation for possible secondary bacterial pneumonia She was started on vancomycin and Zosyn on presentation Her UA suggests UTI although urine culture came back negative Blood cultures are negative for now 04/05 antibi
[2021-04-09] MEDS: PANTOPRAZOLE SODIUM IV 40 MG VIAL IV PUSH (09:11)
[2021-04-09] MEDS: BUMETANIDE INJ 1 MG/4 ML VIAL 2 MG IV PUSH (09:12)
[2021-04-09] MEDS: SODIUM BICARBONATE TAB 650 MG TABLET FEED TUBE (09:12)
[2021-04-09] MEDS: MINERAL OIL/WHITE PETROLATUM OINTMENT 1 APPLIC EACH EYE (09:12)
[2021-04-09 09:27] LABS: Glucose Point of Care 115 mg/dl (65-105)
--- NOTE | 2021-04-09 10:06 | PM.EVENT ---
Event Note Event Note Event Note: Spoke to patient's son and other family member in the conference room. They requested that they are ready to proceed with palliative extubation and comfort care. I answered their questions explained the whole process. The son said that he would not want a see her in this current state and would like to be called when she passes away.
--- NOTE | 2021-04-09 10:23 | PM.EVENT ---
Event Note Event Note Event Note: Dr Martins's note seen. comfort care now. I will sign off.
--- NOTE | 2021-04-09 11:32 | PC.NURSE ---
after waiting over an hour for paralytic to wear off, pt extubated to to terminal pain protocal, at 11:26 no resp, no pulse ox no telemetry, no apical pulse, no response to pain, charge nurse notified and aware
--- NOTE | 2021-04-09 18:40 | PM.DDS ---
Discharge Summary Date and Time Date of : 04/09/21 Time of : 11:26 Provider Pronounced By: Shaji TORO Probable Cause of Probable Cause of : Acute respiratory failure. Summary Hospital Course: Please refer the patient's history and physical. Briefly, this is an 85-year-old female with past medical history significant for hypertension, anemia of iron deficiency, dyslipidemia. Patient came as a transfer from [facility]; where she arrived by ambulance once there patient crashed with severe respiratory distress and required ventilator support. Most of the history has been obtained from medical record as patient is currently on ventilator support. Patient tested positive for COVID-19 and chest x-ray showed diffuse lung infiltrates. Patient was managed for acute hypoxic respiratory failure likely related to COVID pneumonia. Patient was proned for 16-18 hours daily. Patient was appropriately started patient on dexamethasone and baricitinib. She was not a candidate for remdesivir given decreased creatinine clearance. Renal function was evaluated while patient was given gentle IV fluids urine output, renal function, electrolytes were closely monitored. Renal ultrasound with mild bilateral renal atrophy, echogenic kidneys, medical renal disease, no hydronephrosis; this suggested chronic renal disease. Her urinalysis is bland. Her elevated CPK did explain her renal insufficiency.She Likely had acute tubular necrosis in the setting of active COVID-19 and this probably has caused most of the issue with her kidneys. On 04/04/2021 repeat chest x-ray today: Some interval progression in patchy airspace opacities throughout both lungs consistent with pneumonia versus less likely pulmonary edema. Patient was on 60% FiO2, and PEEP of 10, FiO2 and PEEP had to be increased as patient was desaturating. chest x-ray reviewed and shows persistent diffuse lung disease -advance ET tube by 2 cm. patient was [place] recently. On 04/05/2021, patient was examined on 55% FiO2, and PEEP of 10, wean FiO2 if possible. She is also noted to have elevated troponin possibly secondary to cardiac injury given COVID pneumonia.. She is noted to have elevated D-dimer which raises concerns for possible PE as well however her renal function precludes from getting CTPE and VQ scan would not be appropriate for this patient with diffuse infiltrates. She is also noted to have declining urine output with worsening oliguric renal failure on chronic kidney disease. at some point dialysis was considered. On 04/[address] Chowdhury was able to speak to patient's son Shahab Ford. Patient would not want to be started on renal replacement therapy. Considering her age and current condition patient's son does not think that dialysis will make any difference to her outcome and does not want to put her through that. The patient's son's presented on 04/09/2021 and proceeded with palliative extubation and comfort care. After withdrawal of mechanical ventilation the patient quickly passed and was pronounced at 11:26 a.m. on 04/09/2021. Additional Data Confirmation of as documented by pronouncing clinician: Pupillary Reflex, Palpable Pulses, Response to Stimuli, Heart Tones and Breath Sounds Family: at bedside Name of Provider Notified: Dr. Stephens Time Provider Notified: 11:53 Was code activated?: No Provider Requests Autopsy: No Family Requests Autopsy: No [employer] Inspector Notified: Yes Date [facility] Notified of : 04/09/21 Time [facility] Notified of : 11:50 Advance directives: No Hospice patient?: No
== END 2021-04-09 11:26 | disposition expired | DRG 870 ==
PROVIDERS: Internal Medicine; Admitting Provider Internal Medicine; PCP Physician Assistant; Visit Provider Internal Medicine
DX: U07.1 COVID-19 (principal); J12.82 Pneumonia due to coronavirus disease 2019; A41.9 Sepsis, unspecified organism; J80 Acute respiratory distress syndrome; N17.9 Acute kidney failure, unspecified; M62.82 Rhabdomyolysis; E87.2 Acidosis; I50.32 Chronic diastolic (congestive) heart failure; I13.0 Hypertensive heart and chronic kidney disease with heart failure and stage 1 through stage 4 chronic kidney disease, or unspecified chronic kidney disease; R65.20 Severe sepsis without septic shock; N18.9 Chronic kidney disease, unspecified; R34 Anuria and oliguria; Z66 Do not resuscitate; Z51.5 Encounter for palliative care; E78.5 Hyperlipidemia, unspecified; D50.9 Iron deficiency anemia, unspecified; F32.A Depression, unspecified; F41.9 Anxiety disorder, unspecified; K21.9 Gastro-esophageal reflux disease without esophagitis; R77.8 Other specified abnormalities of plasma proteins; R94.5 Abnormal results of liver function studies; R79.89 Other specified abnormal findings of blood chemistry; E83.39 Other disorders of phosphorus metabolism; R73.9 Hyperglycemia, unspecified; E16.2 Hypoglycemia, unspecified; D69.6 Thrombocytopenia, unspecified; R00.1 Bradycardia, unspecified; I95.89 Other hypotension; E86.1 Hypovolemia; Z79.899 Other long term (current) drug therapy
CPT/HCPCS: 36415; 36569; 36600; 71045; 76775; 80053; 80202; 81001; 82375; 82436; 82550; 82565; 82570; 82728; 82805; 82948; 83036; 83050; 83605; 83615; 83735; 83874; 84100; 84132; 84133; 84156; 84300; 84450; 84460; 84484; 85025; 85055; 85380; 85610; 85730; 85999; 86140; 87040; 87086; 93005; 93306; 94002; 94003; 94640; A9270; C1751; C9113; J0360; J0610; J0692; J1100; J1644; J1815; J2250; J2543; J2765; J3010; J3370; J7030; J7040; Q4081